=== PATIENT | female | born 1995 | race Caucasian/White ===

== ENCOUNTER 2017-01-24 14:14 | Emergency (ER) | payer MEDICAID ==
[2017-01-24] MEDS ORDERED: Sodium Chloride 0.9% 1000 ML 1,000 ML IV STA (14:30)
--- NOTE | 2017-01-24 14:42 | ERPHSYRPT ---
- History of Present Illness Time Seen by Provider: 01/24/17 14:18 Source: patient, family (darrin) Patient Subjective Stated Complaint: vomiting, unsure if she has the flu or is Triage Nursing Assessment: ambulated to room per self. skin w/d, color normal, resp easy. Physician History: CC: vomiting hx: 21 y/o patient of Dr Garcia with hx of PCO disease. She had LMP one week ago. She has vomiting today. She has no diarrhea or abd pain or fever. She is worried she might be . Timing/Duration: today Severity: moderate Allergies/Adverse Reactions: No Known Drug Allergies Allergy (Verified 01/24/17 14:21) Hx Tetanus, Diphtheria Vaccination/Date Given: No Hx Influenza Vaccination/Date Given: No Hx Pneumococcal Vaccination/Date Given: No - Review of Systems Constitutional: No Fever, No Chills Abdominal/Gastrointestinal: Nausea, Vomiting, No Abdominal Pain, No Diarrhea Genitourinary Symptoms: No Dysuria, No Vaginal Bleeding, No Vaginal Discharge Musculoskeletal: No Back Pain Skin: No Rash Neurological: No Focal Weakness, No Headache, No Parasthesia All Other Systems: Reviewed and Negative - Past Medical History Pertinent Past Medical History: Yes Female Reproductive Disorders: Other Other Medical History: toxic shock syndrome, anemia, pcos, uterus shaped like a heart - Past Surgical History Past Surgical History: No - Social History Smoking Status: Current some day smoker How long have you smoked: 4 Exposure to second hand smoke: Yes Drug Use: marijuana Patient Lives Alone: No (lives with boyfriend) - Female History Hx Last Menstrual Period: 01/13/17 - Nursing Vital Signs Nursing Vital Signs: Initial Vital Signs Temperature 98.2 F 01/24/17 14:17 Pulse Rate 89 01/24/17 14:17 Respiratory Rate 16 01/24/17 14:17 Blood Pressure 135/87 01/24/17 14:17 O2 Sat by Pulse Oximetry 94 L 01/24/17 14:17 - Physical Exam General Appearance: alert, thin Eye Exam: PERRL/EOMI Ears, Nose, Throat Exam: normal ENT inspection, moist mucous membranes Neck Exam: normal inspection, non-tender, supple Respiratory Exam: normal breath sounds Cardiovascular Exam: regular rate/rhythm Gastrointestinal/Abdomen Exam: soft, No tenderness, No distention, No mass, No guarding Pelvic Exam: deferred Back Exam: normal inspection Extremity Exam: normal inspection, normal range of motion Neurologic Exam: alert, oriented x 3, cooperative Skin Exam: warm, dry SpO2 Interpretation: normal SpO2: 94 Oxygen Delivery: Room Air - Course Nursing assessment & vital signs reviewed: Yes Ordered Tests: Active Orders 24 hr Category Date Time Status Clean Catch Urine Specimen STAT Care 01/24/17 14:30 Active IV Insertion STAT Care 01/24/17 14:30 Active CBC W DIFF Stat Lab 01/24/17 14:40 Completed CMP Stat Lab 01/24/17 14:40 Completed CULTURE,URINE Stat Lab 01/24/17 14:30 Received HCG QUALITATIVE,SERUM Stat Lab 01/24/17 14:40 Completed UA W/ MICROSCOPIC Stat Lab 01/24/17 14:30 Completed Medication Summary Discontinued Medications Generic Name Dose Route Start Last Admin Trade Name Freq PRN Reason Stop Dose Admin Sodium Chloride 1,000 mls @ 999 mls/hr 01/24/17 14:30 01/24/17 14:45 Sodium Chloride 0.9% 1000 Ml IV 01/24/17 15:30 999 mls/hr .Q1H1M STA Administration Sodium Chloride Confirm 01/24/17 14:44 Sodium Chloride 0.9% 1000 Ml Administered 01/24/17 14:45 Dose 1,000 mls @ ud .ROUTE .STK-MED ONE Ondansetron HCl 4 mg 01/24/17 15:22 01/24/17 15:23 Zofran 4 Mg/2 Ml Vial IV 01/24/17 15:23 4 mg STAT ONE Administration Ondansetron HCl Confirm 01/24/17 15:22 Zofran 4 Mg/2 Ml Vial Administered 01/24/17 15:23 Dose 4 mg .ROUTE .STK-MED ONE Lab/Rad Data: Laboratory Result Diagrams 01/24/17 14:40 01/24/17 14:40 Laboratory Results 01/24/17 01/24/17 01/24/17 Range/Units 14:40 14:40 14:40 WBC 5.3 (4.0-10.5) K/mm3 RBC 4.40 (4.1-5.4) M/mm3 Hgb 11.1 L (12.0-16.0) gm/dl Hct 33.9 L (35-47) % MCV 77.0 L (78-100) fl MCH 25.2 L (26-32) pg MCHC 32.7 (32-36) g/dl RDW 14.9 H (11.5-14.0) % Plt Count 194 (150-450) K/mm3 MPV 10.1 H (6-9.5) fl Gran % 63.7 (36.0-66.0) % Lymphocytes % 28.2 (24.0-44.0) % Monocytes % 6.2 (0.0-12.0) % Eosinophils % 1.5 (0.00-5.0) % Basophils % 0.4 (0.0-0.4) % Basophils # 0.02 (0-0.4) Sodium 140 (136-145) mEq/L Potassium 3.8 (3.5-5.1) mEq/L Chloride 103 (98-107) mEq/L Carbon Dioxide 28.0 (21-32) mEq/L Anion Gap 12.4 (5-15) MEQ/L BUN 18 (9-20) mg/dL Creatinine 0.91 (0.55-1.30) mg/dl Estimated GFR > 60 ML/MIN Glucose 99 (70-110) MG/DL Calcium 9.1 (8.5-10.1) mg/dL Total Bilirubin 0.40 (0.2-1.0) mg/dL AST 21 (15-37) U/L ALT 19 (12-78) U/L Alkaline Phosphatase 64 (46-116) U/L Serum Total Protein 7.7 (6.4-8.2) gm/dL Albumin 4.6 (3.4-5.0) g/dL Serum , Qual NEGATIVE (Negative) Ur Collection Type Urine Color (YELLOW) Urine Appearance (CLEAR) Urine pH (5-6) Ur Specific [place] (1.005-1.025) Urine Protein (Negative) Urine Ketones (NEGATIVE) Urine Blood (0-5) [place]/ul Urine Nitrite (NEGATIVE) Urine Bilirubin (NEGATIVE) Urine Urobilinogen (0-1) mg/dL Ur Leukocyte Esterase (NEGATIVE) Urine Microscopic RBC (0-2) /HPF Urine Microscopic WBC (0-5) /HPF Ur Epithelial Cells (FEW) /HPF Urine Bacteria (NEGATIVE) /HPF Urine Mucus (NEGATIVE) /HPF Urine Glucose (NEGATIVE) mg/dL Specimen Received 01/24/17 Range/Units 14:30 WBC (4.0-10.5) K/mm3 RBC (4.1-5.4) M/mm3 Hgb (12.0-16.0) gm/dl Hct (35-47) % MCV (78-100) fl MCH (26-32) pg MCHC (32-36) g/dl RDW (11.5-14.0) % Plt Count (150-450) K/mm3 MPV (6-9.5) fl Gran % (36.0-66.0) % Lymphocytes % (24.0-44.0) % Monocytes % (0.0-12.0) % Eosinophils % (0.00-5.0) % Basophils % (0.0-0.4) % Basophils # (0-0.4) Sodium (136-145) mEq/L Potassium (3.5-5.1) mEq/L Chloride (98-107) mEq/L Carbon Dioxide (21-32) mEq/L Anion Gap (5-15) MEQ/L BUN (9-20) mg/dL Creatinine (0.55-1.30) mg/dl Estimated GFR ML/MIN Glucose (70-110) MG/DL Calcium (8.5-10.1) mg/dL Total Bilirubin (0.2-1.0) mg/dL AST (15-37) U/L ALT (12-78) U/L Alkaline Phosphatase (46-116) U/L Serum Total Protein (6.4-8.2) gm/dL Albumin (3.4-5.0) g/dL Serum , Qual (Negative) Ur Collection Type CLEAN CATCH Urine Color YELLOW (YELLOW) Urine Appearance CLEAR (CLEAR) Urine pH 5.0 (5-6) Ur Specific [place] 1.025 (1.005-1.025) Urine Protein TRACE (Negative) Urine Ketones NEGATIVE (NEGATIVE) Urine Blood NEGATIVE (0-5) [place]/ul Urine Nitrite NEGATIVE (NEGATIVE) Urine Bilirubin NEGATIVE (NEGATIVE) Urine Urobilinogen NORMAL (0-1) mg/dL Ur Leukocyte Esterase TRACE (NEGATIVE) Urine Microscopic RBC 0-2 (0-2) /HPF Urine Microscopic WBC 2-5 (0-5) /HPF Ur Epithelial Cells MANY (FEW) /HPF Urine Bacteria MODERATE (NEGATIVE) /HPF Urine Mucus MODERATE (NEGATIVE) /HPF Urine Glucose NEGATIVE (NEGATIVE) mg/dL Specimen Received 01/24 1450 - Progress Progress Note: 01/24/17 15:46 Pt stable. HCG negative. Counseled pt/family regarding: diagnosis, need for follow-up - Departure Time of Disposition: 15:47 Departure Disposition: Home Clinical Impression: Vomiting Qualifiers: Vomiting type: unspecified Vomiting Intractability: non-intractable Nausea presence: with nausea Qualified Code(s): R11.2 - Nausea with vomiting, unspecified Condition: Stable Critical Care Time: No Referrals: CHON GARCIA [Primary Care Provider] - Instructions: Vomiting -- Adult Additional Instructions: VOMITING AND DIARRHEA 1. Take only small amounts of clear, cool liquids at frequent intervals as tolerated for the next 24-48 hours. Avoid milk products and orange juice. Clear liquids are those liquids which you can see through. 2. Pedialyte and popsicles are recommended clear liquids. 3. If the condition worsens you should contact your family physician or return to the emergency department for re-evaluation. Rx zofran. Prescriptions: Ondansetron [Zofran Odt] 4 mg PO Q6HPRN PRN #10 tab.rapdis PRN Reason: Nausea/Vomiting
[2017-01-24] MEDS ORDERED: Sodium Chloride 0.9% 1000 ML 1,000 ML ONE (14:44)
[2017-01-24 14:46] LABS: BASOPHIL % 0.4 % (0.0-0.4); Eosinophil % 1.5 % (0.00-5.0); Granulocytes % 63.7 % (36.0-66.0); Lymphocytes % 28.2 % (24.0-44.0); Mean Corpuscular Hemoglobin 25.2 pg (26-32); Mean Platelet Volume 10.1 fl (6-9.5); Monocytes % 6.2 % (0.0-12.0); Platelet Count 194 K/mm3 (150-450); Red Cell Distribution Width 14.9 % (11.5-14.0); White Blood Count 5.3 K/mm3 (4.0-10.5)
[2017-01-24 15:01] LABS: Bilirubin NEGATIVE (NEGATIVE); Blood NEGATIVE Ery/ul (0-5); COMPLETE URINE MICROSCOPIC? YES; Collection Type CLEAN CATCH; Glucose NEGATIVE (NEGATIVE); Leukocyte Esterase TRACE (NEGATIVE); Mucus MODERATE /HPF (NEGATIVE)
[2017-01-24 15:02] LABS: ADD URINE CULTURE? YES (NO); Bacteria MODERATE /HPF (NEGATIVE); Epithelial Cells MANY /HPF (FEW)
[2017-01-24] MEDS ORDERED: Zofran 4 MG/2 ML VIAL ONE (15:22)
[2017-01-24] MEDS ORDERED: Zofran 4 MG/2 ML VIAL IV ONE (15:22)
[2017-01-24 15:24] LABS: ALBUMIN 4.6 g/dL (3.4-5.0); ALKALINE PHOSPHATASE 64 U/L (46-116); ANION GAP 12.4 MEQ/L (5-15); BLOOD UREA NITROGEN 18 mg/dL (9-20); CHLORIDE 103 mEq/L (98-107); Glucose 99 MG/DL (70-110); Potassium 3.8 mEq/L (3.5-5.1); SGOT/AST 21 U/L (15-37); SGPT/ALT 19 U/L (12-78); SODIUM 140 mEq/L (136-145); Total Protein 7.7 gm/dL (6.4-8.2)
[2017-01-24 15:47] VITALS: BP 107/63; PULSE 80
[2017-01-24 15:48] VITALS: O2SAT 94
== END 2017-01-24 16:02 | disposition home or self-care (01) ==
LOC: ED 14:14
DX: R11.2 Nausea with vomiting, unspecified (principal)
CPT/HCPCS: 36000; 36415; 80053; 81000; 84703; 85025; 87077; 87086; 87186; 96360; 96374; 99285; J2405

== ENCOUNTER 2017-03-22 21:05 | Emergency (ER) | payer MEDICAID, OTHER ==
--- NOTE | 2017-03-22 21:58 | ERPHSYRPT ---
- History of Present Illness Time Seen by Provider: 03/22/17 21:47 Source: patient, family (darrin) Physician History: CC: vaginal bleeding hx: 21 y/o approx 9 weeks with initial OB visit scheduled tomorrow with Dr baugh. She noted some lower abd cramping this AM. Nausea this afternoon. Wiped some vaginal bleeding this evening so came to ER. She has hx of known bicornuate uterus. No dysuria, fever, back pain. Timing/Duration: today Allergies/Adverse Reactions: No Known Drug Allergies Allergy (Verified 01/24/17 14:21) Hx Tetanus, Diphtheria Vaccination/Date Given: No Hx Influenza Vaccination/Date Given: No Hx Pneumococcal Vaccination/Date Given: No - Review of Systems Constitutional: No Fever, No Chills Eyes: No Symptoms Ears, Nose, & Throat: No Symptoms Respiratory: No Cough, No Dyspnea Cardiac: No Chest Pain Abdominal/Gastrointestinal: Nausea, No Abdominal Pain, No Vomiting Genitourinary Symptoms: , Vaginal Bleeding, Other (last intercourse yesterday), No Dysuria, No Vaginal Discharge Musculoskeletal: No Back Pain Skin: No Rash Neurological: No Headache All Other Systems: Reviewed and Negative - Past Medical History Pertinent Past Medical History: Yes Female Reproductive Disorders: Other Other Medical History: toxic shock syndrome, anemia, pcos, uterus shaped like a heart - Past Surgical History Past Surgical History: No - Social History Smoking Status: Current some day smoker How long have you smoked: 4 Exposure to second hand smoke: Yes Drug Use: marijuana Patient Lives Alone: No (lives with boyfriend) - Nursing Vital Signs Nursing Vital Signs: Initial Vital Signs Temperature 100.0 F 03/22/17 21:58 Pulse Rate 80 03/22/17 21:58 Respiratory Rate 12 03/22/17 21:58 Blood Pressure 130/50 03/22/17 21:58 O2 Sat by Pulse Oximetry 100 03/22/17 21:58 Pain Scale Pain Intensity 4 - Physical Exam General Appearance: alert Eye Exam: PERRL/EOMI Ears, Nose, Throat Exam: normal ENT inspection, moist mucous membranes Neck Exam: normal inspection, non-tender, supple Respiratory Exam: normal breath sounds, lungs clear Cardiovascular Exam: regular rate/rhythm Neurologic Exam: alert, oriented x 3, cooperative Skin Exam: warm, dry, No rash - Course Nursing assessment & vital signs reviewed: Yes - Radiology Ultrasound Exam OB Ultrasound: Other (8+4 week IUP with FHR 173, bicornuate uterus) Ordered Tests: Active Orders 24 hr Category Date Time Status Cath for Specimen-Straight STAT Care 03/22/17 21:53 Active Pelvic Exam Assist STAT Care 03/22/17 21:53 Active OB <14 WKS 1ST GESTATION [US] Stat Exams 03/22/17 22:27 Ordered CBC W DIFF Stat Lab 03/22/17 21:10 Completed HCG, Quantitative (Inhouse) Stat Lab 03/22/17 21:10 Completed HCG,QUALITATIVE URINE Stat Lab 03/22/17 21:00 Completed UA W/ MICROSCOPIC Stat Lab 03/22/17 23:00 Completed Wet Prep Stat Lab 03/22/17 23:00 Completed Lab/Rad Data: Laboratory Result Diagrams 03/22/17 21:10 Laboratory Results 03/22/17 03/22/17 03/22/17 Range/Units 23:00 21:10 21:10 WBC (4.0-10.5) K/mm3 RBC (4.1-5.4) M/mm3 Hgb (12.0-16.0) gm/dl Hct (35-47) % MCV (78-100) fl MCH (26-32) pg MCHC (32-36) g/dl RDW (11.5-14.0) % Plt Count (150-450) K/mm3 MPV (6-9.5) fl Gran % (36.0-66.0) % Lymphocytes % (24.0-44.0) % Monocytes % (0.0-12.0) % Eosinophils % (0.00-5.0) % Basophils % (0.0-0.4) % Basophils # (0-0.4) Beta HCG, Quant [id number] H (0-6) IU/L Ur Collection Type CATH Urine Color YELLOW (YELLOW) Urine Appearance CLEAR (CLEAR) Urine pH 5.5 (5-6) Ur Specific [place] 1.025 (1.005-1.025) Urine Protein NEGATIVE (Negative) Urine Ketones NEGATIVE (NEGATIVE) Urine Blood 50 (0-5) [place]/ul Urine Nitrite NEGATIVE (NEGATIVE) Urine Bilirubin NEGATIVE (NEGATIVE) Urine Urobilinogen 1 (0-1) mg/dL Ur Leukocyte Esterase NEGATIVE (NEGATIVE) Urine Microscopic RBC 0-2 (0-2) /HPF Urine Bacteria RARE (NEGATIVE) /HPF Urine Glucose NEGATIVE (NEGATIVE) mg/dL Urine HCG, Qual (Negative) WBC (Wet Prep) Moderate RBC (Wet Prep) Few Epi Cells (Wet Prep) Moderate Bacteria (Wet Prep) Few Clue Cells (Wet Prep) Rare Trichomonas (Wet Prep) None Seen Budding Yeast (Wet Prp) None Seen Specimen Received 03/22/17:2300 ABO Group B Rh Factor POSITIVE Antibody Screen NEGATIVE (NEGATIVE) 03/22/17 03/22/17 Range/Units 21:10 21:00 WBC 9.8 (4.0-10.5) K/mm3 RBC 4.01 L (4.1-5.4) M/mm3 Hgb 10.7 L (12.0-16.0) gm/dl Hct 31.4 L (35-47) % MCV 78.3 (78-100) fl MCH 26.6 (26-32) pg MCHC 34.1 (32-36) g/dl RDW 15.5 H (11.5-14.0) % Plt Count 196 (150-450) K/mm3 MPV 9.9 H (6-9.5) fl Gran % 71.4 H (36.0-66.0) % Lymphocytes % 21.1 L (24.0-44.0) % Monocytes % 6.3 (0.0-12.0) % Eosinophils % 1.1 (0.00-5.0) % Basophils % 0.1 (0.0-0.4) % Basophils # 0.01 (0-0.4) Beta HCG, Quant (0-6) IU/L Ur Collection Type Urine Color (YELLOW) Urine Appearance (CLEAR) Urine pH (5-6) Ur Specific [place] (1.005-1.025) Urine Protein (Negative) Urine Ketones (NEGATIVE) Urine Blood (0-5) [place]/ul Urine Nitrite (NEGATIVE) Urine Bilirubin (NEGATIVE) Urine Urobilinogen (0-1) mg/dL Ur Leukocyte Esterase (NEGATIVE) Urine Microscopic RBC (0-2) /HPF Urine Bacteria (NEGATIVE) /HPF Urine Glucose (NEGATIVE) mg/dL Urine HCG, Qual POSITIVE (Negative) WBC (Wet Prep) RBC (Wet Prep) Epi Cells (Wet Prep) Bacteria (Wet Prep) Clue Cells (Wet Prep) Trichomonas (Wet Prep) Budding Yeast (Wet Prp) Specimen Received ABO Group Rh Factor Antibody Screen (NEGATIVE) - Progress Progress Note: 03/22/17 23:46 Labs and sono reassuring. Advised miscarriage precautions and follow up with Dr Baugh. Counseled pt/family regarding: diagnosis, need for follow-up - Departure Time of Disposition: 23:46 Departure Disposition: Home Clinical Impression: 8+4 week intrauterine , Threatened miscarriage Condition: Stable Critical Care Time: No Referrals: OVI BAUGH MD [Primary Care Provider] - Instructions: Threatened Additional Instructions: Stay on vitamins. No intercourse. Drink plenty of fluids. Follow up with Dr Baugh this week. Return for problems or concerns.
[2017-03-22 22:17] LABS: BASOPHIL % 0.1 % (0.0-0.4); Eosinophil % 1.1 % (0.00-5.0); Granulocytes % 71.4 % (36.0-66.0); Lymphocytes % 21.1 % (24.0-44.0); Mean Cell Volume 78.3 fl (78-100); Mean Platelet Volume 9.9 fl (6-9.5); Monocytes % 6.3 % (0.0-12.0); Platelet Count 196 K/mm3 (150-450); Red Blood Count 4.01 M/mm3 (4.1-5.4); Red Cell Distribution Width 15.5 % (11.5-14.0); White Blood Count 9.8 K/mm3 (4.0-10.5)
[2017-03-22 22:25] LABS: Mean Corpuscular Hemoglobin 26.6 pg (26-32)
[2017-03-22 23:20] LABS: Collection Type CATH
[2017-03-22 23:21] LABS: Bacteria RARE /HPF (NEGATIVE); Bilirubin NEGATIVE (NEGATIVE); Blood 50 Ery/ul (0-5); COMPLETE URINE MICROSCOPIC? YES; Glucose NEGATIVE (NEGATIVE); Leukocyte Esterase NEGATIVE (NEGATIVE)
[2017-03-22 23:22] LABS: ADD URINE CULTURE? NO (NO); Bacteria Few; Clue Cells Rare; Trichomonas None Seen; Yeast None Seen
[2017-03-22 23:57] VITALS: BP 116/64; PULSE 65; O2SAT 99
[2017-03-23 01:11] LABS: CHLAMYDIA DNA NEGATIVE
--- NOTE | 2017-03-23 08:47 | XRAY ---
Indication: Pelvic pain. Vaginal bleeding. History of bicornuate uterus. Two-dimensional transabdominal early OB ultrasound performed. Comparison: Pelvic sonogram January 30, 2017. Again sonographic appearance favoring bicornuate uterus. There is now a single intrauterine gestational sac with presence of a single pole in the right cornu. Mean crown-rump length measures 2.00 cm corresponding to 8 weeks 4 days. heart rate 173 bpm. No abnormal subchorionic fluid collection. Left and right ovaries are unremarkable. No suspicious adnexal mass or free fluid. Impression: Again bicornuate uterus with now a single viable intrauterine measuring 8 weeks 4 days. Expected date confinement is October 28, 2017. Nothing acute. Comment: Preliminary report was given.
== END 2017-03-22 23:57 | disposition home or self-care (01) ==
LOC: ED 21:05
DX: O20.0 Threatened abortion (principal); Z3A.08 8 weeks gestation of pregnancy
CPT/HCPCS: 36415; 76801; 76815; 81000; 84702; 84703; 85025; 86850; 86900; 86901; 87210; 87490; 87590; 99284

== ENCOUNTER 2017-06-12 09:20 | Emergency (ER) | payer OTHER ==
[2017-06-12] MEDS ORDERED: Sodium Chloride 0.9% 1000 ML 1,000 ML IV STA ×2 (09:46→11:14)
--- NOTE | 2017-06-12 09:46 | ERPHSYRPT ---
- History of Present Illness Time Seen by Provider: 06/12/17 09:37 Source: patient Exam Limitations: no limitations Patient Subjective Stated Complaint: Pt states "I have been vomiting since [address] 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 I cannot keep anything down." Triage Nursing Assessment: Pt alert and oriented X 3, skin pwd. Pt ambulates with an upright steady gait, able to speak in clear full sentences. Pt appears in no respiratory distress. Physician History: 22-year-old white female 1 para 0 who is 20 weeks 5 days estimated gestational age who had a ultrasound last week. She arrives with complaint of persistent nausea and vomiting since last night. She states that she had occasional abdominal cramp. No vaginal bleeding no discharge No fevers. States she ate at [employer] last night. Does state that vomiting has slowed a little bit and has not had vomiting this morning after taking sips of water. Past medical history includes toxic shock, anemia, polycystic ovaries, bicornuate uterus Past surgical history is negative Timing/Duration: yesterday Severity: moderate Modifying Factors: Improves With: nothing Associated Symptoms: nausea, vomiting, abdominal pain (occasional abdominal cramp with vomiting), No shortness of breath, No heartburn, No diaphoresis, No cough, No chills, No chest pain, No fever, No headaches, No loss of appetite, No malaise, No rash, No syncope, No seizure, No weakness Allergies/Adverse Reactions: No Known Drug Allergies Allergy (Verified 01/24/17 14:21) Home Medications: Comb No.42/Folic Acid [Prena1 Chew Tablet] 1.4 mg PO DAILY 06/12/17 [ History] Hx Tetanus, Diphtheria Vaccination/Date Given: No Hx Influenza Vaccination/Date Given: No Hx Pneumococcal Vaccination/Date Given: No Immunizations Up to Date: Yes - Review of Systems Constitutional: No Fever, No Chills Eyes: No Symptoms Ears, Nose, & Throat: No Symptoms, No Ear Pain, No Ear Discharge, No Hearing Changes, No Tinnitus, No Nose Pain, No Nose Congestion, No Nose Discharge, No Sinus Drainage, No Epistaxis, No Mouth Pain, No Mouth Swelling, No Loose Teeth, No Throat Pain, No Throat Swelling, No Hoarse, No Painful Swallowing, No Snoring , No Stridor Respiratory: No Cough, No Dyspnea Cardiac: No Chest Pain, No Edema, No Syncope Abdominal/Gastrointestinal: Abdominal Pain (occasional cramps with vomiting), Nausea, Vomiting Genitourinary Symptoms: No Dysuria Musculoskeletal: No Back Pain, No Neck Pain Skin: No Rash Neurological: No Dizziness, No Focal Weakness, No Sensory Changes Psychological: No Symptoms Endocrine: No Symptoms All Other Systems: Reviewed and Negative - Past Medical History Pertinent Past Medical History: Yes Female Reproductive Disorders: Other Other Medical History: toxic shock syndrome, anemia, pcos, uterus shaped like a heart - Past Surgical History Past Surgical History: No - Social History Smoking Status: Never smoker How long have you smoked: 4 Exposure to second hand smoke: Yes Drug Use: marijuana Patient Lives Alone: No - Female History Hx Last Menstrual Period: 12/31/2016 Hx Now: Yes Expected Date of Delivery: 10/23/16 Gestational Age: 17 - Nursing Vital Signs Nursing Vital Signs: Initial Vital Signs Temperature 98.2 F 06/12/17 09:24 Pulse Rate 116 H 06/12/17 09:24 Respiratory Rate 16 06/12/17 09:24 Blood Pressure 121/77 06/12/17 09:24 O2 Sat by Pulse Oximetry 95 06/12/17 09:24 Pain Scale Pain Intensity 2 - Physical Exam General Appearance: no apparent distress, alert Eye Exam: PERRL/EOMI, eyes nml inspection Ears, Nose, Throat Exam: normal ENT inspection, TMs normal, pharynx normal, moist mucous membranes Neck Exam: normal inspection, non-tender, supple, full range of motion Respiratory Exam: normal breath sounds Cardiovascular Exam: regular rate/rhythm, normal heart sounds, normal peripheral pulses Gastrointestinal/Abdomen Exam: soft, normal bowel sounds, No tenderness, No mass Back Exam: normal inspection, normal range of motion, No CVA tenderness, No vertebral tenderness Extremity Exam: normal inspection, normal range of motion, pelvis stable Neurologic Exam: alert, oriented x 3, cooperative, normal mood/affect, nml cerebellar function, nml station & gait, sensation nml, No motor deficits Skin Exam: normal color, warm, dry, No rash Lymphatic Exam: No adenopathy SpO2 Interpretation: normal (95%) SpO2: 95 Oxygen Delivery: Room Air Ordered Tests: Active Orders 24 hr Category Date Time Status Heart Tones-ED STAT Care 06/12/17 09:47 Active IV Insertion STAT Care 06/12/17 09:46 Active Orthostatic Vital Signs STAT Care 06/12/17 10:34 Active AMYLASE Stat Lab 06/12/17 09:57 Completed CBC W DIFF Stat Lab 06/12/17 09:57 Completed CMP Stat Lab 06/12/17 09:57 Completed LIPASE Stat Lab 06/12/17 09:57 Completed Manual Differential NC Stat Lab 06/12/17 09:57 Completed UA W/ MICROSCOPIC Stat Lab 06/12/17 09:57 Completed Medication Summary Discontinued Medications Generic Name Dose Route Start Last Admin Trade Name Freq PRN Reason Stop Dose Admin Sodium Chloride 1,000 mls @ 999 mls/hr 06/12/17 09:46 06/12/17 09:53 Sodium Chloride 0.9% 1000 Ml IV 06/12/17 10:46 999 mls/hr .Q1H1M STA Administration Sodium Chloride Confirm 06/12/17 09:52 Sodium Chloride 0.9% 1000 Ml Administered 06/12/17 09:53 Dose 1,000 mls @ ud .ROUTE .STK-MED ONE Sodium Chloride 1,000 mls @ 999 mls/hr 06/12/17 11:14 06/12/17 11:22 Sodium Chloride 0.9% 1000 Ml IV 06/12/17 12:14 999 mls/hr .Q1H1M STA Administration Sodium Chloride Confirm 06/12/17 11:20 Sodium Chloride 0.9% 1000 Ml Administered 06/12/17 11:21 Dose 1,000 mls @ ud .ROUTE .STK-MED ONE Potassium Chloride 20 meq 06/12/17 11:17 06/12/17 11:22 Klor Con 10 Meq PO 06/12/17 11:18 20 meq STAT ONE Administration Potassium Chloride Confirm 06/12/17 11:20 Klor Con 10 Meq Administered 06/12/17 11:21 Dose 20 meq PO .STK-MED ONE Lab/Rad Data: Laboratory Result Diagrams 06/12/17 09:57 06/12/17 09:57 Laboratory Results 06/12/17 06/12/17 06/12/17 Range/Units 09:57 09:57 09:57 WBC 8.4 (4.0-10.5) K/mm3 RBC 3.66 L (4.1-5.4) M/mm3 Hgb 10.6 L (12.0-16.0) gm/dl Hct 30.8 L (35-47) % MCV 84.2 (78-100) fl MCH 28.9 (26-32) pg MCHC 34.4 (32-36) g/dl RDW 13.9 (11.5-14.0) % Plt Count 191 (150-450) K/mm3 MPV 8.8 (6-9.5) fl Segmented Neutrophils 74 H (36.0-66.0) % Band Neutrophils 21 H (0.0-2.0) % Lymphocytes (Manual) 2 L (24-44) % Monocytes (Manual) 3 (0.0-12.0) % Differential Comment ABNORMAL Platelet Estimate NORMAL (NORMAL) Poikilocytosis 1+ Anisocytosis 1+ Sodium 137 (136-145) mEq/L Potassium 3.3 L (3.5-5.1) mEq/L Chloride 102 (98-107) mEq/L Carbon Dioxide 24.1 (21-32) mEq/L Anion Gap 14.4 (5-15) MEQ/L BUN 11 (9-20) mg/dL Creatinine 0.52 L (0.55-1.30) mg/dl Estimated GFR > 60 ML/MIN Glucose 93 (70-110) MG/DL Calcium 8.7 (8.5-10.1) mg/dL Total Bilirubin 0.80 (0.2-1.0) mg/dL AST 26 (15-37) U/L ALT 28 (12-78) U/L Alkaline Phosphatase 68 (46-116) U/L Serum Total Protein 7.2 (6.4-8.2) gm/dL Albumin 3.6 (3.4-5.0) g/dL Amylase 98 (25-115) U/L Lipase 188 (73-393) U/L Ur Collection Type CLEAN CATCH Urine Color YELLOW (YELLOW) Urine Appearance HAZY (CLEAR) Urine pH 8.0 (5-6) Ur Specific Printer 1.010 (1.005-1.025) Urine Protein NEGATIVE (Negative) Urine Ketones MODERATE (NEGATIVE) Urine Blood NEGATIVE (0-5) Pacheco/ul Urine Nitrite NEGATIVE (NEGATIVE) Urine Bilirubin NEGATIVE (NEGATIVE) Urine Urobilinogen NORMAL (0-1) mg/dL Ur Leukocyte Esterase TRACE (NEGATIVE) Urine Microscopic RBC 0-2 (0-2) /HPF Urine Microscopic WBC 2-5 (0-5) /HPF Ur Epithelial Cells FEW (FEW) /HPF Urine Bacteria FEW (NEGATIVE) /HPF Urine Mucus SLIGHT (NEGATIVE) /HPF Urine Culture Reflexed NO (NO) Urine Glucose NEGATIVE (NEGATIVE) mg/dL Specimen Received 06-12 - Progress Progress: improved Progress Note: 06/12/17 10:17 21-year-old white female with history of polycystic ovary disease bicornate uterus 1 para 0 20 weeks 5 days estimated gestational age. Arrives with complaint of persistent nausea and vomiting since last night. She states that she was sent into the to make sure she wasn't dehydrated by her family doctor. Patient states she has had a few abdominal cramps with vomiting otherwise no distress she's had no vaginal discharge or bleeding. Abdominal exam gravid 20 weeks size positive bowel sounds nontender. Patient receiving IV normal saline. Patient did not want Zofran or other anti-emetics she states that she was actually starting to sip and Sprite and seen by her vomiting was decreasing. heart tones are 150 per OB nurse with adequate movement. Awaiting labs. 06/12/17 11:32 Patient feeling better after 1 L of normal saline still a mild tachycardia she did have moderate ketones in her urine. And a potassium of 3.3. Patient will be given a second liter of normal saline and a K Dur tablet 20 mEq. 06/12/17 11:33 06/12/17 12:17 Patient him feeling better after 2 L of normal saline. Patient was given K dur 20 milliequivalents orally Still mild tachycardia around 110. Case is discussed with Dr. Baugh, will consider discharge with plenty of fluids clear fluids only 24 hours if vomiting follow-up with Dr. Baugh . Patient has not Vomited since being in the emergency room. 06/12/17 12:23 - Departure Time of Disposition: 12:22 Departure Disposition: Home Clinical Impression: Intrauterine , incidental Vomiting Qualifiers: Vomiting type: unspecified Vomiting Intractability: non-intractable Nausea presence: with nausea Qualified Code(s): R11.2 - Nausea with vomiting, unspecified Condition: Fair Critical Care Time: No Referrals: OVI BAUGH MD [Primary Care Provider] - Additional Instructions: Return home. Plenty of fluids, clear fluids only 24-48 hours If vomiting. Follow-up with Dr. Baugh. Return for acute distress or for severe symptoms
[2017-06-12] MEDS ORDERED: Sodium Chloride 0.9% 1000 ML 1,000 ML ONE ×2 (09:52→11:20)
[2017-06-12 09:54] LABS: Mean Cell Volume 84.2 fl (78-100); Mean Platelet Volume 8.8 fl (6-9.5); Platelet Count 191 K/mm3 (150-450); Red Blood Count 3.66 M/mm3 (4.1-5.4); Red Cell Distribution Width 13.9 % (11.5-14.0); White Blood Count 8.4 K/mm3 (4.0-10.5)
[2017-06-12 10:00] LABS: Bilirubin NEGATIVE (NEGATIVE); Blood NEGATIVE Ery/ul (0-5); COMPLETE URINE MICROSCOPIC? YES; Collection Type CLEAN CATCH; Glucose NEGATIVE (NEGATIVE); Leukocyte Esterase TRACE (NEGATIVE)
[2017-06-12 10:06] LABS: ADD URINE CULTURE? NO (NO); Bacteria FEW /HPF (NEGATIVE); Epithelial Cells FEW /HPF (FEW); Mucus SLIGHT /HPF (NEGATIVE)
[2017-06-12 10:19] LABS: Mean Corpuscular Hemoglobin 28.9 pg (26-32)
[2017-06-12 10:23] LABS: ANISOCYTOSIS 1+; BAND 21 % (0.0-2.0); Platelet Estimate NORMAL (NORMAL); Poikilocytosis 1+; Total Cells Counted 100
[2017-06-12 10:32] LABS: ALBUMIN 3.6 g/dL (3.4-5.0); ALKALINE PHOSPHATASE 68 U/L (46-116); ANION GAP 14.4 MEQ/L (5-15); BLOOD UREA NITROGEN 11 mg/dL (9-20); CHLORIDE 102 mEq/L (98-107); Carbon Dioxide 24.1 mEq/L (21-32); Glucose 93 MG/DL (70-110); LIPASE 188 U/L (73-393); Potassium 3.3 mEq/L (3.5-5.1); SGOT/AST 26 U/L (15-37); SGPT/ALT 28 U/L (12-78); SODIUM 137 mEq/L (136-145); Total Protein 7.2 gm/dL (6.4-8.2)
[2017-06-12] MEDS ORDERED: Klor Con 10 MEQ PO ONE ×2 (11:17→11:20)
[2017-06-12 12:43] VITALS: BP 116/66; PULSE 116; O2SAT 98
== END 2017-06-12 12:43 | disposition home or self-care (01) ==
LOC: ED 09:20
DX: O21.2 Late vomiting of pregnancy (principal); O34.02 Maternal care for unspecified congenital malformation of uterus, second trimester; Q51.3 Bicornate uterus; Z3A.20 20 weeks gestation of pregnancy
CPT/HCPCS: 36000; 36415; 80053; 81000; 82150; 83690; 85025; 96360; 99283; A9270-GY

== ENCOUNTER 2017-09-11 14:52 | Observation (INO) | payer OTHER ==
[2017-09-11] MEDS ORDERED: PROCARDIA 10 MG PO ONE (16:00)
[2017-09-11] MEDS ORDERED: Lactated Ringers 1,000 ML IV ONE (16:01)
[2017-09-11 17:00] VITALS: O2SAT 100
[2017-09-11 18:24] LABS: Amphetamine,Urine NEGATIVE (NEGATIVE); Barbiturate,Urine NEGATIVE (NEGATIVE); Benzodiazepine,Urine NEGATIVE (NEGATIVE); Cocaine,Urine NEGATIVE (NEGATIVE); Methadone,Urine NEGATIVE (NEGATIVE); Opiate,Urine NEGATIVE (NEGATIVE); PCP,Urine NEGATIVE (NEGATIVE); THC,Urine NEGATIVE (NEGATIVE)
[2017-09-11 19:02] VITALS: BP 110/70; PULSE 89
== END 2017-09-11 18:33 | disposition home or self-care (01) ==
LOC: OB 14:52
PROVIDERS: ADMIT Family Medicine; ATTEND Family Medicine
DX: Z34.03 Encounter for supervision of normal first pregnancy, third trimester (principal)
CPT/HCPCS: 80307; G0378; A9270-GY

== ENCOUNTER 2017-10-06 18:05 | Inpatient (IN) | payer OTHER ==
[~2017-10-06 18:05] MED LIST: Astramorph-Pf 5 MG/10 ML IV ONE; Decadron 4 MG INJ IV ONE; Naropin 0.5% 30 ML VIAL IJ ONE; PHENYLEPHRINE HCL IV ONE; Pitocin 10 UNITS/ML IV ONE; Zofran 4 MG/2 ML VIAL IV ONE
[2017-10-06] MEDS ORDERED: Lactated Ringers 1,000 ML IV ONE (18:23)
[2017-10-06] MEDS ORDERED: Lactated Ringers 1,000 ML IV SCH (18:30)
[2017-10-06] MEDS ORDERED: Pepcid 20 MG VIAL IV SCH (18:30)
[2017-10-06] MEDS ORDERED: Reglan 10 MG/2 ML IV SCH (18:30)
[2017-10-06] MEDS ORDERED: BICITRA 30 ML CUP PO SCH (18:30)
[2017-10-06 19:01] LABS: Hematocrit 32.7 % (35-47); Hemoglobin 11.2 gm/dl (12.0-16.0); Mean Cell Volume 83.6 fl (78-100); Mean Corpuscular Hemoglobin 28.6 pg (26-32); Mean Corpuscular Hgb Concent. 34.3 g/dl (32-36); Mean Platelet Volume 10.9 fl (6-9.5); Platelet Count 183 K/mm3 (150-450); Red Blood Count 3.91 M/mm3 (4.1-5.4); Red Cell Distribution Width 12.3 % (11.5-14.0); White Blood Count 14.4 K/mm3 (4.0-10.5)
[2017-10-06 19:22] LABS: INR 0.91 (0.8-3.0)
[2017-10-06] MEDS ORDERED: CEFAZOLIN 2 GM-D5W BAG** 2 GM/50 ML ML IV SCH (19:30)
[2017-10-06] MEDS ORDERED: Dulcolax 10 MG SUPP PR PRN (19:56)
[2017-10-06] MEDS ORDERED: CORTISONE 1% CREAM TP PRN (19:56)
[2017-10-06] MEDS ORDERED: LANSINOH 40 GM TOP PRN (19:56)
[2017-10-06] MEDS ORDERED: PERCOCET TABLET 5/325MG PO PRN (19:56)
[2017-10-06] MEDS ORDERED: Nubain 10 MG/ML IV PRN (19:56)
[2017-10-06] MEDS ORDERED: Ambien 10 MG PO PRN (19:56)
[2017-10-06] MEDS ORDERED: Dermoplast Spray TP PRN (19:56)
[2017-10-06] MEDS ORDERED: Anucort-HC SUPPOSITORY PR PRN (19:56)
[2017-10-06] MEDS ORDERED: MORPHINE SULFATE 2 MG INJ IV PRN (19:56)
[2017-10-06] MEDS ORDERED: DEMEROL 50 MG IV PRN (19:56)
[2017-10-06] MEDS ORDERED: BENADRYL 50 MG/ML IV PRN (19:56)
[2017-10-06] MEDS ORDERED: Zofran 4 MG/2 ML VIAL IV PRN (19:56)
[2017-10-06] MEDS ORDERED: Sodium Chloride 0.9% 10 ML FLUSH Syringe IJ PRN (19:56)
[2017-10-06] MEDS ORDERED: Mylicon 80MG PO PRN (19:56)
[2017-10-06] MEDS ORDERED: TUCKS TP PRN (19:56)
[2017-10-06] MEDS ORDERED: Phenergan 25 MG INJ IM PRN (19:56)
[2017-10-06] MEDS ORDERED: CLARITIN 10 MG PO PRN (19:56)
[2017-10-06] MEDS ORDERED: Narcan 0.4 MG/ML IV PRN (19:56)
[2017-10-06] MEDS ORDERED: HOLD NARCOTIC ANALGESICS AND SEDATIVES X24 HR MC PRN (19:56)
[2017-10-06 20:30] LABS: ABO TYPING B; Antibody Screen NEGATIVE (NEGATIVE); RH TYPING POSITIVE
[2017-10-06 20:34] LABS: Amphetamine,Urine NEGATIVE (NEGATIVE); Barbiturate,Urine NEGATIVE (NEGATIVE); Benzodiazepine,Urine NEGATIVE (NEGATIVE); Cocaine,Urine NEGATIVE (NEGATIVE); Methadone,Urine NEGATIVE (NEGATIVE); Opiate,Urine NEGATIVE (NEGATIVE); PCP,Urine NEGATIVE (NEGATIVE); THC,Urine NEGATIVE (NEGATIVE)
[2017-10-06 22:07] LABS: Appearance CLOUDY (CLEAR); Bacteria FEW /HPF (NEGATIVE); Bilirubin NEGATIVE (NEGATIVE); Blood 250 Ery/ul (0-5); Epithelial Cells FEW /HPF (FEW); Glucose NEGATIVE (NEGATIVE); Ketones LARGE (NEGATIVE); Leukocyte Esterase TRACE (NEGATIVE); Nitrite NEGATIVE (NEGATIVE); Protein,Urine Dip TRACE (Negative); Specific Gravity 1.015 (1.005-1.025); Urobilinogen NORMAL mg/dL (0-1)
[2017-10-06] MEDS: Colace 100 MG PO SCH (22:59)
[2017-10-06] MEDS: Dextrose 5%-Lr IV Solution 1000 ML 1,000 ML IV SCH (23:05)
[2017-10-07] MEDS: TYLENOL EXTRA STRENGTH 500 MG PO PRN ×2 (05:43→11:02)
[2017-10-07] MEDS: MOTRIN 400 MG PO PRN ×3 (05:43→20:15)
[2017-10-07 05:50] LABS: BASOPHIL % 0.1 % (0.0-0.4); Basophil (Absolute #) 0.01 (0-0.4); Eosinophil (Absolute #) 0 (0-0.5); Granulocyte Absolute (ANC) 14.51 (1.4-6.9); Granulocytes % 90.8 % (36.0-66.0); Hematocrit 21.9 % (35-47); Hemoglobin 7.5 gm/dl (12.0-16.0); Lymphocytes % 5.6 % (24.0-44.0); Mean Cell Volume 84.6 fl (78-100); Mean Corpuscular Hgb Concent. 34.2 g/dl (32-36); Mean Platelet Volume 9.5 fl (6-9.5); Monocyte (Absolute #) 0.56 (0.0-1.3); Monocytes % 3.5 % (0.0-12.0); Platelet Count 153 K/mm3 (150-450); Red Blood Count 2.59 M/mm3 (4.1-5.4); Red Cell Distribution Width 11.8 % (11.5-14.0)
[2017-10-07 05:52] LABS: Mean Corpuscular Hemoglobin 28.9 pg (26-32)
[2017-10-07] MEDS: Dextrose 5%-Lr IV Solution 1000 ML 1,000 ML IV SCH (06:01)
[2017-10-07] MEDS ORDERED: Adacel Vial IM ONE (10:00)
--- NOTE | 2017-10-07 10:07 | OP ---
SURGERY DATE/TIME: 10/06/20171931 PREOPERATIVE DIAGNOSES: 1) Breech presentation. 2) Bicornuate uterus. 3) In early labor. POSTOPERATIVE DIAGNOSES: 1) Breech presentation. 2) Bicornuate uterus. 3) In early labor. PROCEDURE: Primary low transverse section. SURGEON: Moris Bejarano M.D. ANESTHESIA: Spinal by Wojciech Paul CRNA. ESTIMATED BLOOD LOSS: 400 cc. IV FLUIDS: 2 liters of crystalloid. URINE OUTPUT: 50 cc clear straw-colored urine. SPECIMEN: Placenta was sent for pathology. DESCRIPTION OF PROCEDURE: The patient is a 21 year-old 1, para 0 at 36 weeks and 6 days who was breech presentation with history of bicornuate uterus who presented to labor and delivery in early active labor with regular contractions, bloody show and spontaneous rupture of membranes. She was taken to the operating room and underwent spinal anesthesia. She was prepped and draped in the usual sterile fashion. After adequate level of anesthesia was assessed, a low transverse skin incision was made by knife and carried down to the subcutaneous fat to the level of the fascia and the fascia was nicked on both sides of the midline and extended in horizontal fashion using curved Lorenzana scissors. The superior free edge of the fascia was grasped with Chad clamps and the underlying rectus muscles were dissected free. The same was repeated inferiorly. The peritoneal cavity was then opened and extended in horizontal fashion. Bladder blade was inserted. Bladder flap was created and reflected over the lower uterine segment. Horizontal uterine incision was made by knife and carried down to the level of the amniotic membranes which were carefully artificially ruptured. A viable female was delivered from breech presentation. Oropharynx and nares were bulb suctioned on the field. Cord was clamped and cut. She was handed off to the awaiting nursery team. Placenta was removed manually from the uterus and the uterus was exteriorized. The uterine cavity was wiped free of any remaining membranes, blood or clot with lap sponge. There was a septum noted at this noted. Next, the uterine incision was closed with #1 chromic in a running locked fashion with good hemostasis and good closure. There was a small extension in the left aspect of the uterine incision vertically which was closed with another chromic suture and 2-0 Vicryl was placed in figure-of-8 in another area of bleeding with good hemostasis and good closure. The posterior cul-de-sac was wiped free of blood and clot with moist lap sponge and the uterus was returned to the peritoneal cavity. The lateral gutters were wiped free of blood and clot. Again the uterine incision was inspected and noted to be well approximated and good hemostasis. Next, the fascia was closed with 0 Vicryl in a running fashion with good closure and good hemostasis. The subcutaneous fat was irrigated with warm, sterile saline and any areas of bleeding were cauterized with electrocautery. Finally the skin layer was closed with 4-0 undyed Vicryl in a running subcuticular fashion. Steri-Strips and occlusive dressing were placed over the incision and the patient was transferred to the recovery room in excellent condition.
[2017-10-07] MEDS: FERREX 150 PO SCH (11:04)
[2017-10-07] MEDS: Colace 100 MG PO SCH ×2 (11:04→20:16)
[2017-10-07 11:38] VITALS: O2SAT 100
[2017-10-08] MEDS: MOTRIN 400 MG PO PRN ×2 (05:24→14:11)
[2017-10-08] MEDS: NORCO 5/325 MG PO PRN ×3 (06:53→19:37)
--- NOTE | 2017-10-08 06:53 | PCM.DS ---
Discharge Summary Date of Admission: 10/06/17 18:23 Admitting Physician: OVI BAUGH Consults: Consults on Case 10/06/17 18:23 Notify Anesthesia Provider ROUTINE Notify Physician OF ADMISSION 10/06/17 19:56 Notify Anesthesia Provider Primary Care Provider: OVI BAUGH Allergies Allergies No Known Drug Allergies Allergy (Verified 01/24/17 14:21) Hospital Summary - Hospital Course Hospital Course: 21yo arrived in labor at 36 6/7 wks EGA in labor, breech with a history of bicornuate uterus. no complications, doing well post-operatively. - Vitals & Intake/Output Vital Signs: Vital Signs Temperature 98.0 F 10/08/17 02:05 Pulse Rate 87 10/08/17 02:05 Respiratory Rate 18 10/08/17 02:05 Blood Pressure 139/72 10/08/17 02:05 O2 Sat by Pulse Oximetry 100 10/07/17 09:00 Intake & Output: Intake & Output 10/05/17 10/06/17 10/07/17 10/08/17 11:59 11:59 11:59 11:59 Intake Total 1877 426 Output Total 1450 300 Balance 427 126 Weight 164 kg - Lab Result Diagrams: 10/07/17 05:35 Discharge Exam General Appearance: no apparent distress, alert Skin Exam: normal color, warm, dry Respiratory Exam: normal breath sounds, lungs clear, No respiratory distress Cardiovascular Exam: regular rate/rhythm, normal heart sounds Gastrointestinal/Abdomen Exam: soft, No tenderness, No mass Extremity Exam: normal inspection, normal range of motion Final Diagnosis/Problem List - Final Discharge Diagnosis/Problem (1) delivery delivered Current Visit: Yes Status: Acute (2) Bicornate uterus Current Visit: Yes Status: Acute (3) () Current Visit: Yes Status: Acute - Discharge Disposition: Home, Self-Care Condition: Stable Prescriptions: [place] Polysaccharides Complex [Ferrex 150] 150 mg PO DAILY #30 capsule Ibuprofen 600 mg PO Q8H PRN PRN #30 tablet PRN Reason: Pain Hydrocodone/Acetaminophen [[place] 5-325 Tablet] 1 each PO Q4-6HPRN PRN #30 tablet MDD 6 PRN Reason: Pain Continue Comb No.42/Folic Acid [Prena1 Chew Tablet] 1.4 mg PO DAILY Discontinued Nifedipine 10 mg [Procardia 10 mg] 10 mg PO TID Follow up with: OVI BAUGH MD [Primary Care Provider] - 1 Week
[2017-10-08] MEDS: Colace 100 MG PO SCH (09:17)
[2017-10-08] MEDS: FERREX 150 PO SCH (09:17)
[2017-10-08] MEDS ORDERED: NORCO 5/325 MG PO ONE (11:00)
[2017-10-08] MEDS ORDERED: DEMEROL 75 MG IM PRN (20:00)
[2017-10-08 20:05] VITALS: BP 136/71; PULSE 100
== END 2017-10-08 21:35 | disposition home or self-care (01) | DRG 766 ==
LOC: OB 18:05 → OBSVTOIN 18:23 → OB 18:23
PROVIDERS: ADMIT Family Medicine; ATTEND Family Medicine
PROC: 10D00Z1 Extraction of Products of Conception, Low, Open Approach (ICD-10-PCS; principal; 2017-10-06)
DX: O32.1XX0 Maternal care for breech presentation, not applicable or unspecified (principal); Z3A.36 36 weeks gestation of pregnancy; Z37.0 Single live birth; O34.03 Maternal care for unspecified congenital malformation of uterus, third trimester; Q51.3 Bicornate uterus
CPT/HCPCS: 36415; 64488; 76937; 76942; 80307; 81000; 85025; 85027; 85610; 85730; 86850; 86900; 86901; 87086; 88307; 90715; 94799; 99140; G0378; J0690; J1100; J2274; J2370; J2405; J2590; J2795; L0625; A9270-GY

== ENCOUNTER 2020-09-24 10:41 | Day surgery (SDC) | payer MEDICAID, OTHER ==
--- NOTE | 2020-09-24 08:52 | HP ---
DATE OF SURGERY: 09/24/2020 HISTORY OF PRESENT ILLNESS: The patient is a 24 year-old with right upper quadrant pain, nausea and vomiting that has been going on for a while and now maybe some change a little bit. Ultrasound showed sludge, tiny polyp but no gallstones. PAST MEDICAL HISTORY: She denies any chronic illnesses. PAST SURGICAL HISTORY: section in the past. MEDICATIONS: She has been on some nausea medication. ALLERGIES: NKDA. FAMILY HISTORY: Diabetes, hypothyroid, heart disease, gallbladder problems in the family. SOCIAL HISTORY: She does use some tobacco. Denies alcohol abuse. REVIEW OF SYSTEMS: Fourteen systems reviewed. No chest pain or palpitations. Other systems negative or noncontributory as above and per preadmission questionnaire. PHYSICAL EXAMINATION: GENERAL: No acute distress. HEENT: Sclerae nonicteric. NECK: No JVD. CHEST: Equal excursion, nonlabored breathing. CVS: Regular rate and rhythm. ABDOMEN: Soft, some mild tenderness right upper quadrant. No peritoneal signs. EXTREMITIES: No significant edema. NEURO: Alert, oriented, moving extremities symmetrically. PSYCH: Appropriate mood and affect. IMPRESSION: Symptomatic biliary colic, acute exacerbation of chronic cholecystitis. Ultrasound showed sludge and gallbladder polyp, no gallstone. Due to symptomatic biliary colic, I feel she will benefit from cholecystectomy. She was shown the risk sheet and gallbladder pamphlet, explained the procedure in detail including but not limited to bleeding or infection, risk of trocar injury or hernia, risk of bowel, bladder or blood vessel injury, risk of bile leak, bile duct injury, retained stone or sludge possibly requiring further procedure either open or ERCP, general risk of anesthesia, deep venous thrombosis, pulmonary embolism, pneumonia, perioperative risk of aches, pains, bloating, constipation and/or loose stools possibly even chronic in nature, possibly procedure may not improve her symptoms. She may need further work up and/or testing, endoscopy, other studies or procedures. She understands all of the above but not limited to, will proceed with laparoscopic cholecystectomy possible open as an outpatient.
[~2020-09-24 10:41] MED LIST changes: -Astramorph-Pf 5 MG/10 ML IV ONE; -Decadron 4 MG INJ IV ONE; +Lactated Ringers 1,000 ML IV ONE; -Naropin 0.5% 30 ML VIAL IJ ONE; -PHENYLEPHRINE HCL IV ONE; -Pitocin 10 UNITS/ML IV ONE; +Sensorcaine 0.25% 10 ML ONE; -Zofran 4 MG/2 ML VIAL IV ONE
[2020-09-24] MEDS ORDERED: MEFOXIN 2 GM PREMIX** 2 GM/50 ML ML IV ONE (10:50)
[2020-09-24] MEDS ORDERED: Lactated Ringers 1,000 ML IV ONE (10:50)
[2020-09-24] MEDS ORDERED: Lactated Ringers 1,000 ML IV SCH (11:00)
[2020-09-24] MEDS ORDERED: MEFOXIN 2 GM PREMIX** 2 GM/50 ML ML IV SCH (11:00)
[2020-09-24] MEDS: Versed 2 MG/2 ML Injection IV PRN ×2 (11:22→11:31)
[2020-09-24] MEDS ORDERED: DIPRIVAN 200 MG/20 ML IV ONE (11:51)
[2020-09-24] MEDS ORDERED: SUBLIMAZE 250 MCG/5 ML ONE (11:51)
[2020-09-24] MEDS ORDERED: Zemuron 100 MG/10 ML ONE (11:51)
[2020-09-24] MEDS ORDERED: Versed 2 MG/2 ML Injection ONE (11:51)
[2020-09-24] MEDS ORDERED: BRIDION 200MG/2ML IV ONE (11:54)
[2020-09-24] MEDS ORDERED: TORAdol 30 mg Injection ONE (13:15)
[2020-09-24] MEDS ORDERED: SUBLIMAZE 100 MCG/2 ML ONE (13:51)
[2020-09-24] MEDS ORDERED: Hydromorphone 1 mg/ml Injection ONE (13:51)
[2020-09-24] MEDS ORDERED: MORPHINE SULFATE 10 MG/ML ONE (14:13)
[2020-09-24] MEDS ORDERED: Zofran 4 MG/2 ML VIAL ONE (14:13)
--- NOTE | 2020-09-24 15:26 | OP ---
SURGERY DATE/TIME: 09/24/2020 1254 PREOPERATIVE DIAGNOSIS: Acute exacerbation of chronic cholecystitis, symptomatic biliary sludge, possible gallbladder polyp on ultrasound. POSTOPERATIVE DIAGNOSIS: Acute exacerbation of chronic cholecystitis, symptomatic biliary sludge, possible gallbladder polyp on ultrasound. PROCEDURE: Laparoscopic cholecystectomy. SURGEON: Dr. Gabriel Smith. ANESTHESIA: General. ESTIMATED BLOOD LOSS: Minimal. INDICATIONS: As noted above. Risks and benefits explained in detail but not limited to and consent obtained. DESCRIPTION OF PROCEDURE AND FINDINGS: The patient was taken to the operating room. General anesthesia induced. Abdomen prepped and draped in the usual sterile fashion. After official time out and no disagreement with planned procedure, a transverse incision made infraumbilical area due to supraumbilical piercing to avoid. Fascia grasped and pulled upward. Veress needle inserted and tested with saline. Pneumoperitoneum accomplished insufflating opening pressure of 0-15. An 11 mm bladeless port and camera inserted without difficulty followed by two - 5 mm right upper quadrant ports and 5 mm epigastric port. The gallbladder grasped retracted over the edge of the liver. It had some mild chronic inflammatory reaction with some omental adhesions. It was dissected posterior, lateral to anterior fashion. Slowly and carefully cystic duct and infundibular area slowly and carefully well skeletonized until the critical view obtained anteriorly and posteriorly. There was an anterior lying artery that was coming across anterior to cystic duct and infundibular junction. This is carefully isolated. It was clipped x3 and divided. This allowed access to the cystic duct and infraumbilical junction this is slowly and carefully well skeletonized until critical view obtained anterior and posterior. Once this was accomplished cystic duct and cystic artery clipped x3 and divided in usual fashion. Gallbladder slowly and carefully dissected free from its dense attachment to liver bed, clipping additional oozing side branches off the cystic artery directly on the gallbladder wall as necessary. Just prior to releasing from final attachments to the anterior edge of the liver, the liver bed re-inspected. Clips noted in place in cystic duct and cystic artery stumps. No signs of any active bleeding or bile leakage. I was felt there was no benefit from drain placement. Gallbladder then released from its final attachments to anterior edge of the liver. It was pulled up and out the 10/11 port site and passed off. The 10/11 fascial defect closed with puncture closure device with #1 Vicryl. The liver bed was re-inspected one last time. Copious amount of irrigation accomplished lateral to the liver. Liver bed re-inspected. Clips noted to be in place in cystic duct and cystic artery stumps. No signs of any active bleeding or bile leakage. It was felt there is no benefit from drain placement. Pneumoperitoneum decompressed. The wound irrigated out. Skin incision closed with 4-0 Vicryl. Steri-Strips and sterile dressing applied. 0.25% Marcaine local injected along the skin incision fascial defect at the beginning of the case. There were no immediate complications. Findings discussed with her mother out in the waiting area. She may have some bruising around skin incision site. Good hemostasis at the end of the procedure. Steri-Strips and sterile dressings applied. She was transferred to recovery in stable condition. Findings discussed with family out in the waiting area.
[2020-09-24 15:56] VITALS: BP 147/79; PULSE 65; O2SAT 100
== END 2020-09-24 15:45 | disposition home or self-care (01) ==
LOC: SDC 10:41
PROVIDERS: ATTEND Surgery
DX: K81.2 Acute cholecystitis with chronic cholecystitis (principal)
CPT/HCPCS: 84703; J0694; J1170; J1885; J2250; J2270; J2405; J2704; J3010

== ENCOUNTER 2022-03-14 11:28 | Emergency (ER) | payer OTHER ==
--- NOTE | 2022-03-14 12:02 | ERPHSYRPT ---
- History of Present Illness Historian: patient Exam Limitations: other (Poor historian) Patient Subjective Stated Complaint: Abdominal pain-possible Triage Nursing Assessment: Patient ambulated back to ED and transferred self to bed. Patient A+OX 3. Patient's skin pink ,warm and dry. Patient complains of constant lower abdominal pain cramping with vaginal bleeding. Patient states she is one week late on period. Patient complains of N/V. Physician History: 26 yo wf w N/V last night and lower abdominal pain rated 4/10. Pain is sharp and nothing makes it better or worse. She also just started her period but is 1 week late. Her OC use has been intermittant. She denies dysuria and frequency. Cough/coryza are denied. Timing/Duration: yesterday (Last night) Activities at Onset: rest Quality: sharpness Abdominal Pain Onset Location: periumbilical Pain Radiation: no radiation Severity of Pain-Max: moderate Severity of Pain-Current: mild Modifying Factors: Improves With: nothing Associated Symptoms: diarrhea, nausea, vomiting, No back, No chest pain, No diaphoresis, No fever/chills, No fatigue, No headache, No heartburn, No loss of appetite, No neck pain, No rash, No shortness of breath, No syncope, No weakness Previous symptoms: no prior history Allergies/Adverse Reactions: No Known Drug Allergies Allergy (Verified 03/14/22 11:35) Home Medications: Norgestimate-Ethinyl Estradiol [Qxh-Wv-Xrezawwym Tablet] 1 tab PO DAILY 03/14/22 [History] Hx Tetanus, Diphtheria Vaccination/Date Given: No Hx Influenza Vaccination/Date Given: No Hx Pneumococcal Vaccination/Date Given: No Immunizations Up to Date: Yes Travel Risk - International Travel Have you traveled outside of the country in past 3 weeks: No - Coronavirus Screening Are you exhibiting any of the following symptoms?: No Close contact with a COVID-19 positive Pt in past 14-21 Days: No - Vaccine Status Have you recieved a Covid-19 vaccination: No - Review of Systems Constitutional: No Symptoms Eyes: No Symptoms Ears, Nose, & Throat: No Symptoms Respiratory: No Symptoms Cardiac: No Symptoms Abdominal/Gastrointestinal: Abdominal Pain, Nausea, Vomiting, Diarrhea Genitourinary Symptoms: No Symptoms Musculoskeletal: No Symptoms Skin: No Symptoms Neurological: No Symptoms Psychological: No Symptoms Endocrine: No Symptoms Hematologic/Lymphatic: No Symptoms Immunological/Allergic: No Symptoms - Past Medical History Pertinent Past Medical History: Yes Neurological History: No Pertinent History ENT History: No Pertinent History Cardiac History: No Pertinent History Respiratory History: No Pertinent History Endocrine Medical History: No Pertinent History Musculoskeletal History: No Pertinent History GI Medical History: No Pertinent History Psycho-Social History: No Pertinent History Female Reproductive Disorders: Other Other Medical History: toxic shock syndrome, anemia, pcos, uterus shaped like a heart - Past Surgical History Past Surgical History: Yes Neuro Surgical History: No Pertinent History Cardiac: No Pertinent History Respiratory: No Pertinent History Gastrointestinal: No Pertinent History Genitourinary: No Pertinent History Musculoskeletal: No Pertinent History Female Surgical History: Section - Social History Smoking Status: Current every day smoker How long have you smoked: 3 years Exposure to second hand smoke: Yes Drug Use: none Patient Lives Alone: No Significant Family History: no pertinent family hx - Female History Hx Last Menstrual Period: last month Hx Now: No - Nursing Vital Signs Nursing Vital Signs: Initial Vital Signs Temperature 96.9 F 03/14/22 11:38 Pulse Rate 73 03/14/22 11:38 Respiratory Rate 18 03/14/22 11:38 Blood Pressure 145/91 03/14/22 11:38 O2 Sat by Pulse Oximetry 100 03/14/22 11:38 Pain Scale Pain Intensity 4 - Physical Exam General Appearance: no apparent distress Eye Exam: PERRL/EOMI Ears, Nose, Throat Exam: normal ENT inspection, TMs normal, pharynx normal, moist mucous membranes Neck Exam: normal inspection, non-tender, supple, full range of motion, No meningismus, No mass, No Brudzinski, No Kernig's Respiratory Exam: normal breath sounds, lungs clear, airway intact Cardiovascular Exam: regular rate/rhythm, normal heart sounds, normal peripheral pulses, capillary refill <2 sec, No murmur Gastrointestinal/Abdomen Exam: soft, normal bowel sounds, tenderness (Mild infra-umbilical TTP wo guarding or rebound) Back Exam: normal inspection, normal range of motion, No CVA tenderness, No vertebral tenderness Extremity Exam: normal inspection, normal range of motion Neurologic Exam: alert, oriented x 3, cooperative, facility examiner II-XII nml as tested, normal mood/affect, nml cerebellar function, nml station & gait, sensation nml, No motor deficits, No sensory deficit Skin Exam: normal color, warm, dry, No rash Lymphatic Exam: No adenopathy SpO2 Interpretation: normal SpO2: 100 O2 Delivery: Room Air - Course Nursing assessment & vital signs reviewed: Yes - CT Exams Abdomen/Pelvis CT Interpretation: Discussed w/radiologist (R ovarian cyst/Appendix not visualized) - Radiology Ultrasound Exam Pelvis Ultrasound: discussed w/radiologist Ordered Tests: Active Orders 24 hr Category Date Time Status ABDOMEN AND PELVIS W/0 CONTRAS [CT] Stat Exams 03/14/22 12:26 Completed PELVIC [US] Stat Exams 03/14/22 14:21 Completed CBC W DIFF Stat Lab 03/14/22 13:28 Completed HCG,QUALITATIVE URINE Stat Lab 03/14/22 11:56 Completed UA W/RFX CULTURE Stat Lab 03/14/22 11:56 Completed Medication Summary Discontinued Medications Generic Name Dose Route Start Last Admin Trade Name Freq PRN Reason Stop Dose Admin Ketorolac Tromethamine 30 mg 03/14/22 12:27 03/14/22 12:30 Ketorolac Tromethamine 30 Mg/Ml Inj IM 03/14/22 12:28 30 mg STAT ONE Administration Ketorolac Tromethamine Confirm 03/14/22 12:29 Ketorolac Tromethamine 30 Mg/Ml Inj Administered 03/14/22 12:30 Dose 30 mg .ROUTE .STSCRM-MED ONE Lab/Rad Data: Laboratory Result Diagrams 03/14/22 13:28 03/14/22 13:28 Laboratory Results 03/14/22 03/14/22 03/14/22 Range/Units 13:28 13:28 11:56 WBC 4.5 (4.0-10.5) x10^3/uL RBC 4.27 (4.1-5.4) x10^6/uL Hgb 10.1 L (12.0-16.0) g/dL Hct 32.8 L (35-47) % MCV 76.8 L (78-100) fL MCH 23.7 L (26-32) pg MCHC 30.8 L (32-36) g/dL RDW 15.7 H (11.5-14.0) % Plt Count 214 (150-450) x10^3/uL MPV 10.2 (7.5-11.0) fL Gran % 63.9 (36.0-66.0) % Immature Gran % (Auto) 0.0 (0.00-0.4) % Nucleat RBC Rel Count 0.0 (0.00-0.1) % Eos # (Auto) 0.09 (0-0.5) x10^3/uL Immature Gran # (Auto) 0.00 (0.00-0.03) x10^3u/L Absolute Lymphs (auto) 1.24 (1.0-4.6) x10^3/uL Absolute Monos (auto) 0.29 (0.0-1.3) x10^3/uL Absolute Nucleated RBC 0.00 (0.00-0.01) x10^3u/L Lymphocytes % 27.3 (24.0-44.0) % Monocytes % 6.4 (0.0-12.0) % Eosinophils % 2.0 (0.00-5.0) % Basophils % 0.4 (0.0-0.4) % Absolute Granulocytes 2.90 (1.4-6.9) x10^3/uL Basophils # 0.02 (0-0.4) x10^3/uL Sodium Direct 140 (138-146) mmol/L Potassium 3.8 (3.5-4.9) mmol/L Chloride 104 (98-109) mmol/L Carbon Dioxide 25 (24-29) mmol/L Venous BUN 7 L (8-26) mg/dL Creatinine 0.7 (0.6-1.3) mg/dL Glucose 88 (70-105) mg/dL Ionized Calcium 1.13 (1.12-1.32) mmol/L Urinalys Dipstick Clnc MAIN LAB Urine Color PINK (YELLOW) Urine Appearance CLEAR (CLEAR) Urine pH 5.5 (5-6) Ur Specific [place] 1.010 (1.005-1.025) POC Urine Protein Conf NEGATIVE (Negative) Urine Ketones NEGATIVE (NEGATIVE) Urine Nitrite NEGATIVE (NEGATIVE) Urine Bilirubin NEGATIVE (NEGATIVE) Urine Urobilinogen 0.2 (0-1) mg/dL Urine Leukocytes NEGATIVE (NEGATIVE) Urine WBC (Auto) 3-5 (0-5) /HPF Urine RBC (Auto) 16-25 (0-2) /HPF U Epithel Cells (Auto) RARE (FEW) /HPF Urine Bacteria (Auto) RARE (NEGATIVE) /HPF Urine RBC LARGE (0-5) [place]/ul Urine Mucus (Auto) SLIGHT (NEGATIVE) /HPF Ur Culture Indicated? NO Urine Glucose NEGATIVE (NEGATIVE) mg/dL Urine HCG, Qual (Negative) 03/14/22 Range/Units 11:56 WBC (4.0-10.5) x10^3/uL RBC (4.1-5.4) x10^6/uL Hgb (12.0-16.0) g/dL Hct (35-47) % MCV (78-100) fL MCH (26-32) pg MCHC (32-36) g/dL RDW (11.5-14.0) % Plt Count (150-450) x10^3/uL MPV (7.5-11.0) fL Gran % (36.0-66.0) % Immature Gran % (Auto) (0.00-0.4) % Nucleat RBC Rel Count (0.00-0.1) % Eos # (Auto) (0-0.5) x10^3/uL Immature Gran # (Auto) (0.00-0.03) x10^3u/L Absolute Lymphs (auto) (1.0-4.6) x10^3/uL Absolute Monos (auto) (0.0-1.3) x10^3/uL Absolute Nucleated RBC (0.00-0.01) x10^3u/L Lymphocytes % (24.0-44.0) % Monocytes % (0.0-12.0) % Eosinophils % (0.00-5.0) % Basophils % (0.0-0.4) % Absolute Granulocytes (1.4-6.9) x10^3/uL Basophils # (0-0.4) x10^3/uL Sodium Direct (138-146) mmol/L Potassium (3.5-4.9) mmol/L Chloride (98-109) mmol/L Carbon Dioxide (24-29) mmol/L Venous BUN (8-26) mg/dL Creatinine (0.6-1.3) mg/dL Glucose (70-105) mg/dL Ionized Calcium (1.12-1.32) mmol/L Urinalys Dipstick Clnc Urine Color (YELLOW) Urine Appearance (CLEAR) Urine pH (5-6) Ur Specific [place] (1.005-1.025) POC Urine Protein Conf (Negative) Urine Ketones (NEGATIVE) Urine Nitrite (NEGATIVE) Urine Bilirubin (NEGATIVE) Urine Urobilinogen (0-1) mg/dL Urine Leukocytes (NEGATIVE) Urine WBC (Auto) (0-5) /HPF Urine RBC (Auto) (0-2) /HPF U Epithel Cells (Auto) (FEW) /HPF Urine Bacteria (Auto) (NEGATIVE) /HPF Urine RBC (0-5) Pcaheco/ul Urine Mucus (Auto) (NEGATIVE) /HPF Ur Culture Indicated? Urine Glucose (NEGATIVE) mg/dL Urine HCG, Qual NEGATIVE (Negative) - Progress Progress Note: 03/14/22 14:57 Pain improved w 30mg IM Toradol Counseled pt/family regarding: lab results, diagnosis, need for follow-up, rad results - Departure Departure Disposition: Home Clinical Impression: Abdominal pain, Ovarian cyst Condition: Stable Critical Care Time: No Referrals: OVI BAUGH MD [Primary Care Provider] - Follow up/PCP as directed Instructions: Severe Abdominal Pain, Adult (DC), Ovarian Cyst (DC) Additional Instructions: Motrin/Tylenol for pain Follow up with your family MD Return to ER for increasing pain or temperature greater than 100.5
[2022-03-14 12:16] LABS: Appearance CLEAR (CLEAR); Bilirubin NEGATIVE (NEGATIVE); Glucose NEGATIVE (NEGATIVE); Ketones NEGATIVE (NEGATIVE)
[2022-03-14 12:17] LABS: Dipstick done @ ? MAIN LAB; Nitrite NEGATIVE (NEGATIVE); Ph 5.5 (5-6); Protein,Urine Dip NEGATIVE (Negative); RBC LARGE Ery/ul (0-5); Urobilinogen 0.2 mg/dL (0-1)
[2022-03-14 12:19] LABS: Bacteria RARE /HPF (NEGATIVE); Epithelial Cells RARE /HPF (FEW); Mucus SLIGHT /HPF (NEGATIVE)
[2022-03-14 12:20] LABS: Urine Cultured Indicated? NO
[2022-03-14] MEDS ORDERED: TORAdol 30 mg Injection IM ONE (12:27)
[2022-03-14] MEDS ORDERED: TORAdol 30 mg Injection ONE (12:29)
--- NOTE | 2022-03-14 12:52 | XRAY ---
Indication: Pain and vomiting. Multiple contiguous axial images obtained through abdomen and pelvis without contrast. Comparison: None Lung bases clear. Heart not enlarged. Noncontrasted stomach and bowel loops appear nonobstructed. Appendix not visualized. 3.5 cm right ovary cyst. Tiny cul-de-sac fluid presumed physiologic from rupture/leaking cyst. No free air. Previous cholecystectomy. Remaining liver, pancreas, spleen, adrenal glands, kidneys, ureters, bladder, uterus, and aorta are unremarkable for noncontrast exam. Osseous structures intact. No ventral or inguinal hernias. Impression: 1. 3.5 cm right ovary cyst and tiny physiologic cul-de-sac fluid. 2. Remaining CT abdomen/pelvis without contrast exam is negative.
[2022-03-14 13:38] LABS: Basophil (Absolute #) 0.02 x10^3/uL (0-0.4); Eosinophil (Absolute #) 0.09 x10^3/uL (0-0.5); Hematocrit 32.8 % (35-47); Hemoglobin 10.1 g/dL (12.0-16.0); Lymphocyte (Absolute #) 1.24 x10^3/uL (1.0-4.6); Lymphocytes % 27.3 % (24.0-44.0); Mean Cell Volume 76.8 fL (78-100); Mean Corpuscular Hemoglobin 23.7 pg (26-32); Mean Corpuscular Hgb Concent. 30.8 g/dL (32-36); Mean Platelet Volume 10.2 fL (7.5-11.0); Monocyte (Absolute #) 0.29 x10^3/uL (0.0-1.3); Monocytes % 6.4 % (0.0-12.0); Neutrophil % 63.9 % (36.0-66.0); Platelet Count 214 x10^3/uL (150-450); Red Blood Count 4.27 x10^6/uL (4.1-5.4); Red Cell Distribution Width 15.7 % (11.5-14.0); White Blood Count 4.5 x10^3/uL (4.0-10.5)
[2022-03-14 14:28] LABS: ISTAT CREA 0.7 mg/dL (0.6-1.3); ISTAT K 3.8 mmol/L (3.5-4.9)
--- NOTE | 2022-03-14 14:37 | XRAY ---
Indication: Pelvic pain. Two-dimensional transvaginal pelvic sonogram performed. Comparison: January 30, 2017 Uterus again anteverted measuring 7.7 x 3.3 x 5.5 cm. No focal solid/cystic uterine mass. Endometrial stripe measures 5.2 mm. Again sonographic features suggest bicornuate uterus. No endometrial cavity mass or fluid collection. Right ovary measures 4.7 x 2.8 x 4.4 cm and the left measures 3.4 x 2.1 x 2.1 cm. Normal follicular cysts and perfusion bilaterally. Right ovary demonstrates a 3.5 cm dominant benign cyst. Small cul-de-sac fluid presumed physiologic from rupture/leaking spondylolisthesis. Impression: New 3.5 cm dominant right ovary cyst and small physiologic cul-de-sac fluid. Again sonographic appearance for bicornuate uterus. Remaining transvaginal pelvic sonogram is negative.
[2022-03-14 15:01] VITALS: BP 126/79; PULSE 78; O2SAT 96
== END 2022-03-14 15:11 | disposition home or self-care (01) ==
LOC: ED 11:28
DX: N83.201 Unspecified ovarian cyst, right side (principal); R10.30 Lower abdominal pain, unspecified; R11.2 Nausea with vomiting, unspecified; Z72.0 Tobacco use; Z28.310 Unvaccinated for COVID-19
CPT/HCPCS: 36415; 74176; 76856; 80047; 81015; 81025; 85025; 96372; 99284; J1885

== ENCOUNTER 2023-10-24 11:18 | Emergency (ER) | payer OTHER ==
[2023-10-24 11:39] LABS: Absolute Neutrophil Ct (ANC) 5.32 x10^3/uL (1.4-6.9); BASOPHIL % 0.6 % (0.0-0.4); Basophil (Absolute #) 0.04 x10^3/uL (0-0.4); Eosinophil % 1.7 % (0.00-5.0); Eosinophil (Absolute #) 0.12 x10^3/uL (0-0.5); Hematocrit 34.7 % (35-47); Hemoglobin 11.6 g/dL (12.0-16.0); IMMATURE GRAN # 0.04 x10^3u/L (0.00-0.03); IMMATURE GRAN % 0.6 % (0.00-0.4); Lymphocyte (Absolute #) 1.43 x10^3/uL (1.0-4.6); Lymphocytes % 19.8 % (24.0-44.0); Mean Cell Volume 77.3 fL (78-100); Mean Corpuscular Hemoglobin 25.8 pg (26-32); Mean Corpuscular Hgb Concent. 33.4 g/dL (32-36); Mean Platelet Volume 9.2 fL (7.5-11.0); Monocyte (Absolute #) 0.28 x10^3/uL (0.0-1.3); Monocytes % 3.9 % (0.0-12.0); Neutrophil % 73.4 % (36.0-66.0); Platelet Count 191 x10^3/uL (150-450); Red Blood Count 4.49 x10^6/uL (4.1-5.4); Red Cell Distribution Width 17.1 % (11.5-14.0); White Blood Count 7.2 x10^3/uL (4.0-10.5)
[2023-10-24 11:49] LABS: Appearance Turbid (Clear); Bacteria Many /HPF (None Seen); Bilirubin Small (Negative); Blood Large (Negative); Epithelial Cells Moderate /HPF (None Seen); Glucose, Urine Negative (Negative); Hyaline Casts NONE SEEN /LPF (0-2); Ketones 40 (Negative); Leukocyte Esterase Moderate (Negative); Nitrite Negative (Negative); Protein,Urine Dip 100 (Negative); RBC >100 /HPF (0-5); Urobilinogen 0.2 mg/dL (0.2); WBC 51-100 /HPF (0-5)
--- NOTE | 2023-10-24 11:51 | ERPHSYRPT ---
- History of Present Illness Time Seen by Provider: 10/24/23 11:44 Source: patient Exam Limitations: no limitations Patient Subjective Stated Complaint: bleeding with Triage Nursing Assessment: Patient reports to ER with complaints of vaginal bleeding. Patient reports that she is 11 weeks and 1 day pregant. Patient reports that she started spotting about a week ago and this morning around 0300 she woke up with abdominal cramping and passed a large blood clot. Patient reports that she had an ultrasound on 10/22/23 and the baby was active and healthy. Patient reports that she had intercourse yesterday evening prior to passing the blood clot. Patient reports that she is high risk due to two cervix and two uterus. Pad in underwear clean and dry - bleeding only occurs when using the restroom. Physician History: Patient reports to ER with complaints of vaginal bleeding. Patient reports that she is 11 weeks and 1 day pregant. Patient reports that she started spotting about a week ago and this morning around 0300 she woke up with abdominal cramping and passed a large blood clot. Patient reports that she had an ultrasound on 10/22/23 and the baby was active and healthy. Patient reports that she had intercourse yesterday evening prior to passing the blood clot. Patient reports that she is high risk due to two cervix and two uterus. Pad in underwear clean and dry - bleeding only occurs when using the restroom. Timing/Duration: today Activites at Onset: sexual activity Pain Radiation: none Severity of Pain-Max: none Severity of Pain-Current: none Prior abdominal problems: none Modifying Factors: Improves With: nothing Associated Symptoms: denies symptoms Allergies/Adverse Reactions: No Known Drug Allergies Allergy (Verified 10/24/23 11:25) Home Medications: Ferrous Sulfate 325 mg [Feosol 325 mg] 325 mg PO DAILY 10/24/23 [History] Mv-Mn/Iron/FA/Herbal/Digestive [ One Tablet] 1 tab PO DAILY 10/24/23 [History] Hx Tetanus, Diphtheria Vaccination/Date Given: No Hx Influenza Vaccination/Date Given: No Hx Pneumococcal Vaccination/Date Given: No Travel Risk - International Travel Have you traveled outside of the country in past 3 weeks: No - Emerging Infectious Disease Are you exhibiting symptoms associated with any current EIDs: No - Review of Systems Constitutional: No Symptoms Eyes: No Symptoms Ears, Nose, & Throat: No Symptoms Respiratory: No Symptoms Cardiac: No Symptoms Abdominal/Gastrointestinal: No Symptoms Genitourinary Symptoms: Vaginal Bleeding Musculoskeletal: No Symptoms Skin: No Symptoms Neurological: No Symptoms Psychological: No Symptoms - Past Medical History Pertinent Past Medical History: Yes Neurological History: No Pertinent History ENT History: No Pertinent History Cardiac History: No Pertinent History Respiratory History: No Pertinent History Endocrine Medical History: No Pertinent History Musculoskeletal History: No Pertinent History GI Medical History: No Pertinent History History: No Pertinent History Psycho-Social History: No Pertinent History Female Reproductive Disorders: Other Other Medical History: toxic shock syndrome, anemia, pcos, two uterus and cervix - Past Surgical History Past Surgical History: Yes Neuro Surgical History: No Pertinent History Cardiac: No Pertinent History Respiratory: No Pertinent History Gastrointestinal: Cholecystectomy Genitourinary: No Pertinent History Musculoskeletal: No Pertinent History Female Surgical History: Section Significant Family History: no pertinent family hx - Female History Hx Now: Yes Gestational Age: 11 weeks 1 - Social History Smoking Status: Former smoker How long have you smoked: 3 years Exposure to second hand smoke: Yes Drug Use: none Patient Lives Alone: No - Nursing Vital Signs Nursing Vital Signs: Initial Vital Signs Pulse Rate 81 10/24/23 11:26 Respiratory Rate 18 10/24/23 11:26 Blood Pressure 112/59 10/24/23 11:26 O2 Sat by Pulse Oximetry 98 10/24/23 11:26 Pain Scale Pain Intensity 0 - Physical Exam General Appearance: no apparent distress, alert Eye Exam: PERRL/EOMI, eyes nml inspection Ears, Nose, Throat Exam: normal ENT inspection, TMs normal, pharynx normal, moist mucous membranes Neck Exam: normal inspection, non-tender, supple, full range of motion Respiratory Exam: normal breath sounds, lungs clear, No respiratory distress Cardiovascular Exam: regular rate/rhythm, normal heart sounds, normal peripheral pulses Gastrointestinal/Abdomen Exam: soft, No tenderness, No mass Back Exam: normal inspection, normal range of motion, No CVA tenderness, No vertebral tenderness Extremity Exam: normal inspection, normal range of motion, pelvis stable Neurologic Exam: alert, oriented x 3, cooperative, 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 nml as tested, normal mood/affect, sensation nml, No motor deficits Skin Exam: normal color, warm, dry Lymphatic Exam: No adenopathy SpO2: 98 - Course Nursing assessment & vital signs reviewed: Yes Ordered Tests: Active Orders 24 hr Category Date Time Status IV Insertion STAT Care 10/24/23 11:29 Active CBC W DIFF Stat Lab 10/24/23 11:30 Completed CMP Stat Lab 10/24/23 11:30 Completed CULTURE,URINE Stat Lab 10/24/23 11:27 Received HCG QUALITATIVE, SERUM Stat Lab 10/24/23 11:30 Completed HCG, Quantitative (Inhouse) Stat Lab 10/24/23 11:30 Completed UA W/RFX UR CULTURE Stat Lab 10/24/23 11:27 Completed Medication Summary Discontinued Medications Generic Name Dose Route Start Last Admin Trade Name Michealq PRN Reason Stop Dose Admin Ceftriaxone Sodium 1 gm in 100 mls @ 200 mls/hr 10/24/23 12:23 10/24/23 12:29 Rocephin 1 Gm / 100 Ml Nacl IV 10/24/23 12:52 200 ml/hr STAT ONE 200 mls/hr Administration Ceftriaxone Sodium Confirm 10/24/23 12:26 Rocephin 1 Gm / 100 Ml Nacl Administered 10/24/23 12:27 Dose 1 gm in 100 mls @ ud IV .STK-MED ONE Lab/Rad Data: Laboratory Result Diagrams 10/24/23 11:30 10/24/23 11:30 Laboratory Results 10/24/23 10/24/23 10/24/23 Range/Units 11:30 11:30 11:30 WBC (4.0-10.5) x10^3/uL RBC (4.1-5.4) x10^6/uL Hgb (12.0-16.0) g/dL Hct (35-47) % MCV (78-100) fL MCH (26-32) pg MCHC (32-36) g/dL RDW (11.5-14.0) % Plt Count (150-450) x10^3/uL MPV (7.5-11.0) fL Gran % (36.0-66.0) % Immature Gran % (Auto) (0.00-0.4) % Nucleat RBC Rel Count (0.00-0.1) % Eos # (Auto) (0-0.5) x10^3/uL Immature Gran # (Auto) (0.00-0.03) x10^3u/L Absolute Lymphs (auto) (1.0-4.6) x10^3/uL Absolute Monos (auto) (0.0-1.3) x10^3/uL Absolute Nucleated RBC (0.00-0.01) x10^3u/L Lymphocytes % (24.0-44.0) % Monocytes % (0.0-12.0) % Eosinophils % (0.00-5.0) % Basophils % (0.0-0.4) % Absolute Granulocytes (1.4-6.9) x10^3/uL Basophils # (0-0.4) x10^3/uL Sodium 136 (135-145) mmol/L Potassium 3.8 (3.5-5.1) mmol/L Chloride 104 (98-107) mmol/L Carbon Dioxide 23 (22-30) mmol/L Anion Gap 12.4 (5-15) MEQ/L BUN 9 (7-17) mg/dL Creatinine 0.61 (0.52-1.04) mg/dL Estimated GFR 126.4 ML/MIN Glucose 102 (74-106) mg/dL Calcium 9.6 (8.4-10.2) mg/dL Total Bilirubin 0.80 (0.2-1.3) mg/dL AST 23 (14-36) U/L ALT 9 (0-35) U/L Alkaline Phosphatase 68 (38-126) U/L Serum Total Protein 7.5 (6.3-8.2) g/dL Albumin 4.4 (3.5-5.0) g/dL Serum HCG, Qual POSITIVE (NEGATIVE) Beta HCG, Quant 63302 mIU/ml Urine Color (Yellow) Urine Appearance (Clear) Urine pH (4.6-8.0) Ur Specific [place] (1.005-1.030) Urine Protein (Negative) Urine Glucose (UA) (Negative) mg/dL Urine Ketones (Negative) Urine Blood (Negative) Urine Nitrite (Negative) Urine Bilirubin (Negative) Urine Urobilinogen (0.2) mg/dL Ur Leukocyte Esterase (Negative) U Hyaline Cast (Auto) (0-2) /LPF Urine Microscopic RBC (0-5) /HPF Urine Microscopic WBC (0-5) /HPF Ur Epithelial Cells (None Seen) /HPF Urine Bacteria (None Seen) /HPF Urine Culture Reflexed (NO) 10/24/23 10/24/23 Range/Units 11:30 11:27 WBC 7.2 (4.0-10.5) x10^3/uL RBC 4.49 (4.1-5.4) x10^6/uL Hgb 11.6 L (12.0-16.0) g/dL Hct 34.7 L (35-47) % MCV 77.3 L (78-100) fL MCH 25.8 L (26-32) pg MCHC 33.4 (32-36) g/dL RDW 17.1 H (11.5-14.0) % Plt Count 191 (150-450) x10^3/uL MPV 9.2 (7.5-11.0) fL Gran % 73.4 H (36.0-66.0) % Immature Gran % (Auto) 0.6 H (0.00-0.4) % Nucleat RBC Rel Count 0.0 (0.00-0.1) % Eos # (Auto) 0.12 (0-0.5) x10^3/uL Immature Gran # (Auto) 0.04 H (0.00-0.03) x10^3u/L Absolute Lymphs (auto) 1.43 (1.0-4.6) x10^3/uL Absolute Monos (auto) 0.28 (0.0-1.3) x10^3/uL Absolute Nucleated RBC 0.00 (0.00-0.01) x10^3u/L Lymphocytes % 19.8 L (24.0-44.0) % Monocytes % 3.9 (0.0-12.0) % Eosinophils % 1.7 (0.00-5.0) % Basophils % 0.6 (0.0-0.4) % Absolute Granulocytes 5.32 (1.4-6.9) x10^3/uL Basophils # 0.04 (0-0.4) x10^3/uL Sodium (135-145) mmol/L Potassium (3.5-5.1) mmol/L Chloride (98-107) mmol/L Carbon Dioxide (22-30) mmol/L Anion Gap (5-15) MEQ/L BUN (7-17) mg/dL Creatinine (0.52-1.04) mg/dL Estimated GFR ML/MIN Glucose (74-106) mg/dL Calcium (8.4-10.2) mg/dL Total Bilirubin (0.2-1.3) mg/dL AST (14-36) U/L ALT (0-35) U/L Alkaline Phosphatase (38-126) U/L Serum Total Protein (6.3-8.2) g/dL Albumin (3.5-5.0) g/dL Serum HCG, Qual (NEGATIVE) Beta HCG, Quant mIU/ml Urine Color Red A (Yellow) Urine Appearance Turbid A (Clear) Urine pH 5.0 (4.6-8.0) Ur Specific [place] 1.020 (1.005-1.030) Urine Protein 100 A (Negative) Urine Glucose (UA) Negative (Negative) mg/dL Urine Ketones 40 A (Negative) Urine Blood Large A (Negative) Urine Nitrite Negative (Negative) Urine Bilirubin Small A (Negative) Urine Urobilinogen 0.2 (0.2) mg/dL Ur Leukocyte Esterase Moderate A (Negative) U Hyaline Cast (Auto) NONE SEEN (0-2) /LPF Urine Microscopic RBC >100 A (0-5) /HPF Urine Microscopic WBC 51-100 A (0-5) /HPF Ur Epithelial Cells Moderate A (None Seen) /HPF Urine Bacteria Many A (None Seen) /HPF Urine Culture Reflexed YES (NO) Name: STEPHANIE GALDAMEZ Attending Physician: OVI BAUGH IMAGING REPORT : 1995 Age: 27 Sex: F Location: [facility] Report #: [id number] Exam Date: 10/22/23 Status: REG REF Radiology #: Procedures: [id number] US/OB FOLLOW UP PER [facility] Indication: Threatened miscarriage. Two-dimensional transabdominal early OB ultrasound performed. Comparison: September 28, 2023 Again single intrauterine / pole with mean crown-rump length 5.01 cm corresponding to 11 weeks 5 days. heart rate 165 BPM. New 5 mm subchorionic hemorrhage. Left ovary sonographically unremarkable. Nonvisualization right ovary. No suspicious adnexal mass or free fluid. Impression: Again single viable intrauterine measuring 11 weeks 5 days. Normal progression of . New tiny subchorionic hemorrhage. Previous ultrasound proven bicornuate uterus. Reported by: JAKE AVILA DO Signed by: JAKE AVILA DO Signed rosita e/time: 10/22/23 1124 - Progress Progress: improved Air Movement: good Blood Culture(s) Obtained: No Antibiotics given: Yes Counseled pt/family regarding: lab results, diagnosis, need for follow-up Medical Desision Making - Independent Historian Additional History obtained from: Spouse - Diagnostic Testing Diagnostic test were ordered, analyzed, and reviewed by me: Yes Radiological Interpretation: Interpreted by me, Reviewed by me - Risk of complications Minimal Risk: Minimal risk of morbidity - Departure Departure Disposition: Home Clinical Impression: Bicornate uterus, Vaginal bleeding affecting early , Urinary tract infection affecting care of mother in first trimester, antepartum Condition: Stable Critical Care Time: No Referrals: OVI BAUGH MD [Primary Care Provider] - Follow Up with PCP/3 days Instructions: symptoms, Bleeding in Early (DC), Urinary tract infections in , Smoking in , Bleeding In Early , Preventing injuries during Additional Instructions: Discharge/Care Plan STEPHANIE GALDAMEZ was seen on 10/24/23 in the Emergency Room. The patient was counseled regarding Diagnosis,Lab results, Imaging studies, need for follow up and when to return to the Emergency Room. Prescriptions given: Discharge Note I have spoken with the patient and/or caregivers. I have explained the patient's condition, diagnosis and treatment plan based on the information available to me at this time. I have answered the patient's and/or caregiver's questions and addressed any concerns. The patient and/or caregivers have as good understanding of the patient's diagnosis, condition and treatment plan as can be expected at this point. The vital signs have been stable. The patient's condition is stable and appropriate for discharge from the emergency department. The patient will pursue further outpatient evaluation with the primary care physician or other designated or consulting physician as outlined in the discharge instructions. The patient and/or caregivers are agreeable to this plan of care and follow-up instructions have been explained in detail. The patient and/or caregivers have received these instruction. The patient/and or caregivers are aware that any significant change in condition or worsening of symptoms should prompt an immediate return to this or the closest emergency department or call 911. STEPHANIE GALDAMEZ was seen on 10/24/23 n the Emergency Room. At that time you were treated for an emergent condition, during your visit Laboratory, Radiology and/or other procedures may have been ordered. It is very important that you follow-up with your Primary Care Physician OVI BAUGH within the next 24- 48 hours to review your Emergency Room visit and the final results of testing that was ordered. Some test results such as Urine Cultures, Blood Cultures, and other cultures if ordered will not be finalized for 24-48 hours. If you do not have a Primary Care Provider please call the medical records department at [phone] ext [phone] to obtain a copy of your results or you may sign into our patient portal to obtain these results by visiting us @ [email or web address] and completing the following steps: 1. Click on the Patient Portal link 2. Click the Patient Self Enrollment Link to complete the enrollment form and entering your 3. Once the enrollment form is completed you will receive an email with a temporary ID and password at the email address you provided. 4. Next choose a user name and password. Your user name must be at least 4 characters long and your password must be at least 4 characters long. 5. Choose a security question from the list and provide your answer to the question. If you already have signed into the Health Portal you may access your Health Care Information 26/01 by the following steps: 1. Login to our website @ [email or web address] 2. Enter your original user name and password. FAQS The [facility] Health Portal is an online tool that contains your Lab Results, Radiology Reports, Visit History, Discharge Instructions and Health Summary Lab and Radiology Results will not be available for 72 hours on the portal. The Portal is a secure site, passwords are encryted and URLs are re-written so they cannot be copied and pasted. You and authorized family members are the only ones who can access your Portal. Also there is a timeout feature that protects your information if you leave the Portal page open. If you have technical difficulty please use the Contact Us link on the page this will allow you to submit any questions you have regarding the Portal or you may contact the Medical Record Department at [phone] ext [phone]. Prescriptions: Amoxicillin 500 mg Cap [Amoxil 500 mg] 500 mg PO TID #30 cap
[2023-10-24 11:53] LABS: ADD URINE CULTURE? YES (NO)
[2023-10-24 11:53] LABS: HCG SERUM TEST POSITIVE (NEGATIVE)
[2023-10-24 11:56] LABS: ALBUMIN 4.4 g/dL (3.5-5.0); ANION GAP 12.4 MEQ/L (5-15); BILIRUBIN,TOTAL 0.8 mg/dL (0.2-1.3); Calcium 9.6 mg/dL (8.4-10.2); Creatinine 1 0.61 mg/dL (0.52-1.04); EST GLOMERULAR FILTRATION RATE 126.4 ML/MIN; Potassium 3.8 mmol/L (3.5-5.1); Total Protein 7.5 g/dL (6.3-8.2)
[2023-10-24] MEDS ORDERED: ROCEPHIN 1 GM / 100 ML NaCl 1 GM/100 ML IVPB IV ONE (12:26)
[2023-10-24] MEDS: ROCEPHIN 1 GM / 100 ML NaCl 1 GM/100 ML IVPB IV ONE (12:29)
[2023-10-24 13:03] VITALS: BP 126/90; PULSE 72; RESP 16; O2SAT 98
[2023-10-24 13:07] LABS: CHLAMYDIA DNA NOT DETECTED (NEGATIVE); GC DNA Probe NOT DETECTED (NEGATIVE)
== END 2023-10-24 13:09 | disposition home or self-care (01) ==
LOC: ED 11:18
DX: O20.9 Hemorrhage in early pregnancy, unspecified (principal); O23.41 Unspecified infection of urinary tract in pregnancy, first trimester; N39.0 Urinary tract infection, site not specified; O34.01 Maternal care for unspecified congenital malformation of uterus, first trimester; Q51.3 Bicornate uterus; Z3A.11 11 weeks gestation of pregnancy
CPT/HCPCS: 36000; 36415; 80053; 81001; 84702; 84703; 85025; 87086; 87491; 87591; 96365; 99283; J0696

== ENCOUNTER 2023-11-01 22:23 | Emergency (ER) | payer OTHER ==
[2023-11-01 22:51] LABS: HCG URINE TEST POSITIVE (NEGATIVE)
[2023-11-01 22:56] LABS: ADD URINE CULTURE? YES (NO); Appearance Cloudy (Clear); Bacteria None Seen /HPF (None Seen); Bilirubin Negative (Negative); Blood Large (Negative); Epithelial Cells Rare /HPF (None Seen); Glucose, Urine Negative (Negative); Hyaline Casts NONE SEEN /LPF (0-2); Ketones Negative (Negative); Leukocyte Esterase Trace (Negative); Nitrite Negative (Negative); Ph 6.5 (4.6-8.0); Protein,Urine Dip Negative (Negative); RBC >100 /HPF (0-5); Specific Gravity 1.015 (1.005-1.030)
[2023-11-01 23:14] VITALS: TEMP 98.2
--- NOTE | 2023-11-01 23:33 | ERPHSYRPT ---
- History of Present Illness Time Seen by Provider: 11/01/23 23:06 Source: patient Exam Limitations: no limitations Patient Subjective Stated Complaint: Pt states that she is 12 wks and 2 days and that around 11 am today she started bleeding, passed a couple large clots an has had some cramping Triage Nursing Assessment: pt walked to room, pt is alert/oriented. pt voided; small amount to bright red blood noted in toilet, and on toilet paper when pt wiped. Pt stated she has had the lashay pad on for about an hour; small anount of blood noted on pad. Physician History: Since about 12 hours ago pt has had vaginal bleeding going through 2 pads with some abdominal cramping 3-4/10 in severity. Pt states she is 12 weeks 2 days and is . Pt denies chest pain, vomiting, shortness of air, fever. Pt states she has an SIGN DESIGNER specialist Dr. Charles in [place], [place]. Pt states she has 2 days left of a prescription for amoxicillin for a UTI. Allergies/Adverse Reactions: No Known Drug Allergies Allergy (Verified 10/24/23 11:25) Home Medications: Ferrous Sulfate 325 mg [Feosol 325 mg] 325 mg PO DAILY 10/24/23 [History] Mv-Mn/Iron/FA/Herbal/Digestive [ One Tablet] 1 tab PO DAILY 10/24/23 [History] Hx Tetanus, Diphtheria Vaccination/Date Given: No Hx Influenza Vaccination/Date Given: No Hx Pneumococcal Vaccination/Date Given: No Travel Risk - International Travel Have you traveled outside of the country in past 3 weeks: No - Emerging Infectious Disease Are you exhibiting symptoms associated with any current EIDs: No - Review of Systems Constitutional: No Fever Respiratory: No Dyspnea Cardiac: No Chest Pain Abdominal/Gastrointestinal: Abdominal Pain, No Vomiting Genitourinary Symptoms: Vaginal Bleeding, No Dysuria Neurological: No Headache - Past Medical History Pertinent Past Medical History: Yes Neurological History: No Pertinent History ENT History: No Pertinent History Cardiac History: No Pertinent History Respiratory History: No Pertinent History Endocrine Medical History: No Pertinent History Musculoskeletal History: No Pertinent History GI Medical History: No Pertinent History History: No Pertinent History Psycho-Social History: No Pertinent History Female Reproductive Disorders: Other Other Medical History: Bicornuate uterus, double vagina/cervix. high risk of . Anemia. Ovarian cyst. PCOS - Past Surgical History Past Surgical History: Yes Neuro Surgical History: No Pertinent History Cardiac: No Pertinent History Respiratory: No Pertinent History Gastrointestinal: Cholecystectomy Genitourinary: No Pertinent History Musculoskeletal: No Pertinent History Female Surgical History: Section Significant Family History: no pertinent family hx - Female History Hx Now: Yes Gestational Age: 12 wks 2d - Social History Smoking Status: Never smoker How long have you smoked: 3 years Exposure to second hand smoke: Yes Drug Use: none Patient Lives Alone: No - Nursing Vital Signs Nursing Vital Signs: Initial Vital Signs Temperature 98.2 F 11/01/23 22:30 Pulse Rate 68 11/01/23 22:30 Respiratory Rate 20 11/01/23 22:30 Blood Pressure 144/86 11/01/23 22:30 O2 Sat by Pulse Oximetry 99 11/01/23 22:30 Pain Scale Pain Intensity 3 - Physical Exam General Appearance: alert Eye Exam: PERRL/EOMI Ears, Nose, Throat Exam: TMs normal, pharynx normal, moist mucous membranes Neck Exam: normal inspection Respiratory Exam: normal breath sounds, airway intact Cardiovascular Exam: normal heart sounds Gastrointestinal/Abdomen Exam: soft, normal bowel sounds, No tenderness Back Exam: normal inspection Extremity Exam: No pedal edema Neurologic Exam: alert, cooperative Skin Exam: warm, dry SpO2 Interpretation: normal SpO2: 99 O2 Delivery: Room Air - Course Nursing assessment & vital signs reviewed: Yes - Radiology Ultrasound Exam OB Ultrasound: Other (Tech report: placenta previa; Single IUP; ? subchorionic bleed; Small left ovarian cyst 2.0 x 2.0 x 1.7 cm.) Ordered Tests: Active Orders 24 hr Category Date Time Status OB <14 WKS 1ST GESTATION [US] Stat Exams 11/02/23 01:32 Taken AMYLASE Stat Lab 11/01/23 23:40 Completed CBC W DIFF Stat Lab 11/01/23 23:40 Completed CMP Stat Lab 11/01/23 23:40 Completed CULTURE,URINE Stat Lab 11/01/23 22:46 Received HCG QUALITATIVE, URINE Stat Lab 11/01/23 22:47 Completed HCG, Quantitative (Inhouse) Stat Lab 11/01/23 23:40 Completed LIPASE Stat Lab 11/01/23 23:40 Completed UA W/RFX UR CULTURE Stat Lab 11/01/23 22:46 Completed Lab/Rad Data: Laboratory Result Diagrams 11/01/23 23:40 11/01/23 23:40 Laboratory Results 11/01/23 11/01/23 11/01/23 Range/Units 23:40 23:40 23:40 WBC 8.3 (4.0-10.5) x10^3/uL RBC 4.11 (4.1-5.4) x10^6/uL Hgb 10.9 L (12.0-16.0) g/dL Hct 32.0 L (35-47) % MCV 77.9 L (78-100) fL MCH 26.5 (26-32) pg MCHC 34.1 (32-36) g/dL RDW 16.9 H (11.5-14.0) % Plt Count 176 (150-450) x10^3/uL MPV 9.6 (7.5-11.0) fL Gran % 70.0 H (36.0-66.0) % Immature Gran % (Auto) 0.4 (0.00-0.4) % Nucleat RBC Rel Count 0.0 (0.00-0.1) % Eos # (Auto) 0.13 (0-0.5) x10^3/uL Immature Gran # (Auto) 0.03 (0.00-0.03) x10^3u/L Absolute Lymphs (auto) 1.89 (1.0-4.6) x10^3/uL Absolute Monos (auto) 0.41 (0.0-1.3) x10^3/uL Absolute Nucleated RBC 0.00 (0.00-0.01) x10^3u/L Lymphocytes % 22.7 L (24.0-44.0) % Monocytes % 4.9 (0.0-12.0) % Eosinophils % 1.6 (0.00-5.0) % Basophils % 0.4 (0.0-0.4) % Absolute Granulocytes 5.82 (1.4-6.9) x10^3/uL Basophils # 0.03 (0-0.4) x10^3/uL Sodium 135 (135-145) mmol/L Potassium 3.5 (3.5-5.1) mmol/L Chloride 103 (98-107) mmol/L Carbon Dioxide 24 (22-30) mmol/L Anion Gap 11.0 (5-15) MEQ/L BUN 11 (7-17) mg/dL Creatinine 0.60 (0.52-1.04) mg/dL Estimated GFR 126.9 ML/MIN Glucose 89 (74-106) mg/dL Calcium 9.5 (8.4-10.2) mg/dL Total Bilirubin 0.40 (0.2-1.3) mg/dL AST 20 (14-36) U/L ALT 11 (0-35) U/L Alkaline Phosphatase 67 (38-126) U/L Serum Total Protein 6.9 (6.3-8.2) g/dL Albumin 4.0 (3.5-5.0) g/dL Amylase 92 (30-110) U/L Lipase 92 (23-300) U/L Beta HCG, Quant 45620 mIU/ml Urine Color (Yellow) Urine Appearance (Clear) Urine pH (4.6-8.0) Ur Specific [place] (1.005-1.030) Urine Protein (Negative) Urine Glucose (UA) (Negative) mg/dL Urine Ketones (Negative) Urine Blood (Negative) Urine Nitrite (Negative) Urine Bilirubin (Negative) Urine Urobilinogen (0.2) mg/dL Ur Leukocyte Esterase (Negative) U Hyaline Cast (Auto) (0-2) /LPF Urine Microscopic RBC (0-5) /HPF Urine Microscopic WBC (0-5) /HPF Ur Epithelial Cells (None Seen) /HPF Urine Bacteria (None Seen) /HPF Urine Culture Reflexed (NO) Urine HCG, Qual (NEGATIVE) ABO Group B Rh Factor POSITIVE Antibody Screen NEGATIVE (NEGATIVE) 11/01/23 11/01/23 Range/Units 22:47 22:46 WBC (4.0-10.5) x10^3/uL RBC (4.1-5.4) x10^6/uL Hgb (12.0-16.0) g/dL Hct (35-47) % MCV (78-100) fL MCH (26-32) pg MCHC (32-36) g/dL RDW (11.5-14.0) % Plt Count (150-450) x10^3/uL MPV (7.5-11.0) fL Gran % (36.0-66.0) % Immature Gran % (Auto) (0.00-0.4) % Nucleat RBC Rel Count (0.00-0.1) % Eos # (Auto) (0-0.5) x10^3/uL Immature Gran # (Auto) (0.00-0.03) x10^3u/L Absolute Lymphs (auto) (1.0-4.6) x10^3/uL Absolute Monos (auto) (0.0-1.3) x10^3/uL Absolute Nucleated RBC (0.00-0.01) x10^3u/L Lymphocytes % (24.0-44.0) % Monocytes % (0.0-12.0) % Eosinophils % (0.00-5.0) % Basophils % (0.0-0.4) % Absolute Granulocytes (1.4-6.9) x10^3/uL Basophils # (0-0.4) x10^3/uL Sodium (135-145) mmol/L Potassium (3.5-5.1) mmol/L Chloride (98-107) mmol/L Carbon Dioxide (22-30) mmol/L Anion Gap (5-15) MEQ/L BUN (7-17) mg/dL Creatinine (0.52-1.04) mg/dL Estimated GFR ML/MIN Glucose (74-106) mg/dL Calcium (8.4-10.2) mg/dL Total Bilirubin (0.2-1.3) mg/dL AST (14-36) U/L ALT (0-35) U/L Alkaline Phosphatase (38-126) U/L Serum Total Protein (6.3-8.2) g/dL Albumin (3.5-5.0) g/dL Amylase (30-110) U/L Lipase (23-300) U/L Beta HCG, Quant mIU/ml Urine Color Yellow (Yellow) Urine Appearance Cloudy A (Clear) Urine pH 6.5 (4.6-8.0) Ur Specific [place] 1.015 (1.005-1.030) Urine Protein Negative (Negative) Urine Glucose (UA) Negative (Negative) mg/dL Urine Ketones Negative (Negative) Urine Blood Large A (Negative) Urine Nitrite Negative (Negative) Urine Bilirubin Negative (Negative) Urine Urobilinogen 1.0 A (0.2) mg/dL Ur Leukocyte Esterase Trace A (Negative) U Hyaline Cast (Auto) NONE SEEN (0-2) /LPF Urine Microscopic RBC >100 A (0-5) /HPF Urine Microscopic WBC 6-10 A (0-5) /HPF Ur Epithelial Cells Rare (None Seen) /HPF Urine Bacteria None Seen (None Seen) /HPF Urine Culture Reflexed YES (NO) Urine HCG, Qual POSITIVE (NEGATIVE) ABO Group Rh Factor Antibody Screen (NEGATIVE) - Progress Progress: improved Discussed with : Other (Spoke with Dr. Montgomery([id number])(covering SIGN [employer] for Dr. Charles) who stated pt may go home with pelvic rest and call the office this morning for an appointment for this week.) Counseled pt/family regarding: lab results, diagnosis, need for follow-up Medical Desision Making - Diagnostic Testing Diagnostic test were ordered, analyzed, and reviewed by me: Yes - Departure Departure Disposition: Home Clinical Impression: Placenta previa, Vaginal bleeding during Condition: Stable Critical Care Time: No Referrals: OVI BAUGH MD [Primary Care Provider] - Follow up/PCP as directed Instructions: Placenta previa, Bleeding in Early (DC) Additional Instructions: Follow up with your SIGN DESIGNER doctor today; call the office for an appointment. Strict bed rest until you see your SIGN DESIGNER doctor. Forms: Work/School Release Form
[2023-11-01 23:57] LABS: Absolute Neutrophil Ct (ANC) 5.82 x10^3/uL (1.4-6.9); BASOPHIL % 0.4 % (0.0-0.4); Basophil (Absolute #) 0.03 x10^3/uL (0-0.4); Eosinophil % 1.6 % (0.00-5.0); Eosinophil (Absolute #) 0.13 x10^3/uL (0-0.5); Hemoglobin 10.9 g/dL (12.0-16.0); IMMATURE GRAN # 0.03 x10^3u/L (0.00-0.03); IMMATURE GRAN % 0.4 % (0.00-0.4); Lymphocyte (Absolute #) 1.89 x10^3/uL (1.0-4.6); Lymphocytes % 22.7 % (24.0-44.0); Mean Cell Volume 77.9 fL (78-100); Mean Corpuscular Hemoglobin 26.5 pg (26-32); Mean Corpuscular Hgb Concent. 34.1 g/dL (32-36); Mean Platelet Volume 9.6 fL (7.5-11.0); Monocyte (Absolute #) 0.41 x10^3/uL (0.0-1.3); Monocytes % 4.9 % (0.0-12.0); Platelet Count 176 x10^3/uL (150-450); Red Blood Count 4.11 x10^6/uL (4.1-5.4); Red Cell Distribution Width 16.9 % (11.5-14.0); White Blood Count 8.3 x10^3/uL (4.0-10.5)
[2023-11-02 00:25] LABS: BILIRUBIN,TOTAL 0.4 mg/dL (0.2-1.3); Calcium 9.5 mg/dL (8.4-10.2); Creatinine 1 0.6 mg/dL (0.52-1.04); EST GLOMERULAR FILTRATION RATE 126.9 ML/MIN; Potassium 3.5 mmol/L (3.5-5.1); Total Protein 6.9 g/dL (6.3-8.2)
[2023-11-02 00:32] LABS: ABO TYPING B; Antibody Screen NEGATIVE (NEGATIVE); RH TYPING POSITIVE
[2023-11-02 03:25] VITALS: O2SAT 99
[2023-11-02 03:32] VITALS: BP 102/68; PULSE 65; RESP 20
--- NOTE | 2023-11-02 08:47 | XRAY ---
Indication: Bleeding and pain. Two-dimensional transabdominal early OB ultrasound performed. Comparison: September 10, 2023 Again single intrauterine gestational sac with now a single pole. Mean crown-rump length is 6.77 cm corresponding to 13 weeks 0 days. heart rate 149 BPM. Tiny subchorionic hemorrhage up to 4 mm in thickness. Left ovary demonstrates 2 cm corpus luteal cyst. Nonvisualization right ovary. No suspicious adnexal mass or free fluid. Impression: Single viable intrauterine measuring 13 weeks 0 days. Expected date confinement is May 09, 2024. Tiny subchorionic hemorrhage. Comment: Preliminary report was given.
== END 2023-11-02 03:48 | disposition home or self-care (01) ==
LOC: ED 22:23
DX: O44.11 Complete placenta previa with hemorrhage, first trimester (principal); Z3A.12 12 weeks gestation of pregnancy; O20.9 Hemorrhage in early pregnancy, unspecified
CPT/HCPCS: 36415; 76801; 80053; 81001; 81025; 82150; 83690; 84702; 85025; 86850; 86900; 86901; 87086; 99283

== ENCOUNTER 2024-04-26 22:03 | Observation (INO) | payer OTHER ==
[2024-04-26 22:54] VITALS: TEMP 98.3
[2024-04-26] MEDS ORDERED: Lactated Ringers 1,000 ML IV ONE (23:33)
[2024-04-26] MEDS: Lactated Ringers 1,000 ML IV SCH (23:35)
[2024-04-27 00:48] LABS: Amphetamine,Urine NEGATIVE (NEGATIVE); Barbiturate,Urine NEGATIVE (NEGATIVE); Benzodiazepine,Urine NEGATIVE (NEGATIVE); Cocaine,Urine NEGATIVE (NEGATIVE); Methadone,Urine NEGATIVE (NEGATIVE); Opiate,Urine NEGATIVE (NEGATIVE); PCP,Urine NEGATIVE (NEGATIVE); THC,Urine NEGATIVE (NEGATIVE)
[2024-04-27 00:49] LABS: Appearance Clear (Clear); Bacteria Few /HPF (None Seen); Bilirubin Negative (Negative); Blood Negative (Negative); Epithelial Cells Moderate /HPF (None Seen); Glucose, Urine Negative (Negative); Hyaline Casts NONE SEEN /LPF (0-2); Ketones Negative (Negative); Leukocyte Esterase Trace (Negative); Nitrite Negative (Negative); Protein,Urine Dip Negative (Negative); RBC 0-2 /HPF (0-5); Specific Gravity 1.015 (1.005-1.030)
[2024-04-27] MEDS ORDERED: BRETHINE 1 MG/ML ONE (02:02)
[2024-04-27] MEDS: BRETHINE 1 MG/ML SQ ONE (02:03)
[2024-04-27 03:59] VITALS: BP 124/76; PULSE 122; RESP 20; O2SAT 97
== END 2024-04-27 05:30 | disposition home or self-care (01) ==
LOC: MED SURG 22:03 → UNDOADMOB 22:03 → UNDODISOB 04-27 05:30
PROVIDERS: ADMIT Family Medicine; ATTEND Family Medicine
DX: Z34.83 Encounter for supervision of other normal pregnancy, third trimester (principal); Z3A.37 37 weeks gestation of pregnancy
CPT/HCPCS: 80307; 81001; G0378; G0379

== ENCOUNTER 2024-04-30 10:41 | Inpatient (IN) | payer OTHER ==
[2024-04-30 11:47] LABS: Appearance Turbid (Clear); Bilirubin Negative (Negative); Blood Large (Negative); Glucose, Urine Negative (Negative); Ketones Negative (Negative); Leukocyte Esterase Small (Negative); Nitrite Negative (Negative); Ph 6.5 (4.6-8.0); Protein,Urine Dip 30 (Negative); Urobilinogen 0.2 mg/dL (0.2)
[2024-04-30 11:57] LABS: Bacteria Few /HPF (None Seen); Epithelial Cells Few /HPF (None Seen); RBC 51-100 /HPF (0-5)
[2024-04-30] MEDS: SOD CITRATE-CITRIC ACID SOLN PO SCH (12:48)
[2024-04-30] MEDS: Lactated Ringers 1,000 ML IV SCH (12:48)
[2024-04-30] MEDS: Reglan 10 MG/2 ML IV SCH (12:48)
[2024-04-30] MEDS: Pepcid 20 MG VIAL IV SCH (12:49)
[2024-04-30] MEDS: CEFAZOLIN 2 GM/100 ML NaCl 2 GM/100 ML IVPB IV SCH (12:49)
[2024-04-30 12:53] LABS: Hematocrit 34.8 % (34.1-44.9); Hemoglobin 12.5 g/dL (11.2-15.7); Mean Cell Volume 84.9 fL (79.4-94.8); Mean Corpuscular Hemoglobin 30.5 pg (25.6-32.2); Mean Corpuscular Hgb Concent. 35.9 g/dL (32.2-35.5); Mean Platelet Volume 9.8 fL (9.4-12.3); Platelet Count 156 x10^3/uL (182-369); Red Cell Distribution Width 11.8 % (11.7-14.4); White Blood Count 8.5 x10^3/uL (3.98-10.04)
[2024-04-30 13:09] LABS: INR 0.84 (0.8-3.0); PROTIME 9.3 SECONDS (9.4-12.5); PTT 27.3 SECONDS (25.1-36.5)
[2024-04-30 13:39] LABS: ABO TYPING B; Antibody Screen NEGATIVE (NEGATIVE); RH TYPING POSITIVE
[2024-04-30] MEDS ORDERED: Pitocin 10 UNITS/ML ONE (13:41)
[2024-04-30] MEDS ORDERED: Lactated Ringers 1,000 ML IV ONE (13:45)
[2024-04-30] MEDS ORDERED: Marcaine Mpf 0.5% Vial 30 Ml ONE (13:45)
[2024-04-30] MEDS ORDERED: OFIRMEV 100 ML IV ONE (13:45)
[2024-04-30] MEDS ORDERED: EXPAREL 133 MG/10 ML VIAL IJ ONE (13:45)
[2024-04-30] MEDS ORDERED: Astramorph-Pf 5 MG/10 ML ONE (13:54)
[2024-04-30] MEDS ORDERED: HOLD NARCOTIC ANALGESICS AND SEDATIVES X24 HR MC PRN (14:44)
[2024-04-30] MEDS ORDERED: BENADRYL 50 MG/ML IV PRN (14:44)
[2024-04-30] MEDS ORDERED: CORTISONE 1% CREAM TP PRN (14:44)
[2024-04-30] MEDS ORDERED: DEMEROL 50 MG IV PRN ×2 (14:44)
[2024-04-30] MEDS ORDERED: CLARITIN 10 MG PO PRN (14:44)
[2024-04-30] MEDS ORDERED: PHENYLEPHRINE HCL ONE (14:44)
[2024-04-30] MEDS ORDERED: PERCOCET TABLET 5/325MG PO PRN (14:44)
[2024-04-30] MEDS ORDERED: Dulcolax 10 MG SUPP PR PRN (14:44)
[2024-04-30] MEDS ORDERED: Anucort-HC SUPPOSITORY PR PRN (14:44)
[2024-04-30] MEDS ORDERED: Narcan 0.4 MG/ML IV PRN (14:44)
[2024-04-30] MEDS ORDERED: Nubain 10 MG/ML IV PRN (14:44)
[2024-04-30 14:57] LABS: Amphetamine,Urine NEGATIVE (NEGATIVE); Barbiturate,Urine NEGATIVE (NEGATIVE); Benzodiazepine,Urine NEGATIVE (NEGATIVE); Cocaine,Urine NEGATIVE (NEGATIVE); Methadone,Urine NEGATIVE (NEGATIVE); Opiate,Urine NEGATIVE (NEGATIVE); PCP,Urine NEGATIVE (NEGATIVE); THC,Urine NEGATIVE (NEGATIVE)
[2024-04-30 16:06] LABS: Appearance Clear (Clear); Bacteria None Seen /HPF (None Seen); Bilirubin Negative (Negative); Blood Negative (Negative); Epithelial Cells None Seen /HPF (None Seen); Glucose, Urine Negative (Negative); Hyaline Casts NONE SEEN /LPF (0-2); Ketones 15 (Negative); Leukocyte Esterase Negative (Negative); Nitrite Negative (Negative); Ph 7.5 (4.6-8.0); Protein,Urine Dip Negative (Negative); RBC 0-2 /HPF (0-5); Specific Gravity 1.015 (1.005-1.030); Urobilinogen 0.2 mg/dL (0.2); WBC 0-2 /HPF (0-5)
[2024-04-30] MEDS: Zofran 4 MG/2 ML VIAL IV PRN (16:33)
[2024-04-30] MEDS: Dextrose 5%-Lr IV Solution 1000 ML 1,000 ML IV SCH (16:37)
[2024-04-30] MEDS: Compazine 10 MG/2 ML IV ONE (17:59)
[2024-04-30] MEDS: Reglan 10 MG/2 ML IV ONE (20:42)
[2024-04-30] MEDS: Docusate Sodium 100 MG PO SCH (20:42)
[2024-05-01 07:03] LABS: Absolute Neutrophil Ct (ANC) 8.58 x10^3/uL (1.56-6.13); BASOPHIL % 0.3 % (0.1-1.2); Basophil (Absolute #) 0.03 x10^3/uL (0.01-0.08); Eosinophil % 0.9 % (0.7-5.8); Hematocrit 29.1 % (34.1-44.9); Hemoglobin 10.2 g/dL (11.2-15.7); IMMATURE GRAN # 0.06 x10^3u/L (0.001-0.031); IMMATURE GRAN % 0.5 % (0.001-0.429); Lymphocyte (Absolute #) 1.76 x10^3/uL (1.18-3.74); Lymphocytes % 15.9 % (19.3-51.7); Mean Cell Volume 85.8 fL (79.4-94.8); Mean Corpuscular Hemoglobin 30.1 pg (25.6-32.2); Mean Corpuscular Hgb Concent. 35.1 g/dL (32.2-35.5); Mean Platelet Volume 9.9 fL (9.4-12.3); Monocyte (Absolute #) 0.54 x10^3/uL (0.24-0.86); Monocytes % 4.9 % (4.7-12.5); Neutrophil % 77.5 % (34.0-71.1); Platelet Count 147 x10^3/uL (182-369); Red Blood Count 3.39 x10^6/uL (3.93-5.22); Red Cell Distribution Width 11.9 % (11.7-14.4); White Blood Count 11.1 x10^3/uL (3.98-10.04)
[2024-05-01] MEDS: FERREX 150 PO SCH (09:08)
[2024-05-01] MEDS: NORCO 5/325 MG PO PRN (14:46)
[2024-05-01] MEDS: Mylicon 80MG PO PRN (18:57)
[2024-05-01] MEDS: Adacel Vial IM ONE (19:23)
[2024-05-01] MEDS: LANSINOH 40 GM TOP PRN (19:37)
[2024-05-01] MEDS: MOTRIN 400 MG PO PRN (19:37)
[2024-05-01] MEDS: Dextrose 5%-Lr IV Solution 1000 ML 1,000 ML IV SCH (20:34)
[2024-05-01] MEDS: TYLENOL EXTRA STRENGTH 500 MG PO PRN (23:08)
[2024-05-02] MEDS: Dermoplast Spray TP PRN (08:52)
--- NOTE | 2024-05-02 09:01 | PCM.DS ---
Discharge Summary Date of Admission: 04/30/24 12:30 Admitting Physician: OVI BAUGH Consults: Consults on Case 04/30/24 14:45 Notify Anesthesia Provider PRN 04/30/24 18:36 Navigation ONCE Primary Care Provider: OVI BAUGH Allergies Allergies No Known Drug Allergies Allergy (Verified 10/24/23 11:25) Hospital Summary - Hospital Course Hospital Course: patient arrived in spont labor at term with hx prior . underwent repeat with no complications. mild lochia and pain controlled postop. voiding with no difficulty and . - Vitals & Intake/Output Vital Signs: Vital Signs Temperature 97.8 F 05/02/24 03:00 Pulse Rate 81 05/02/24 03:00 Respiratory Rate 16 05/02/24 03:00 Blood Pressure 111/68 05/02/24 03:00 O2 Sat by Pulse Oximetry 99 05/01/24 20:20 Intake & Output: Intake & Output 04/29/24 04/30/24 05/01/24 05/02/24 11:59 11:59 11:59 11:59 Intake Total 1967 Output Total 1950 Balance 17 Weight 77.111 kg 77.111 kg - Lab Result Diagrams: 05/01/24 05:40 Micro Results-Entire Visit: Microbiology 04/30/24 15:54 Urine Culture - Final Catherized NO GROWTH 04/30/24 11:13 Urine Culture - Final Urine, Void <10K NORMAL SKIN CARA PROBABLE SKIN CONTAMINANT - Procedures and Test Procedures and Tests throughout Hospitalization: Therapy Orders & Screens 04/30/24 14:42 Standby ROUTINE Comment: Diagnosis: IUP Discharge Exam General Appearance: no apparent distress Neurologic Exam: alert Respiratory Exam: normal breath sounds, lungs clear, No respiratory distress Cardiovascular Exam: regular rate/rhythm, normal heart sounds Gastrointestinal/Abdomen Exam: soft, other (incision clean, dry, intact) Extremity Exam: normal inspection, normal range of motion Skin Exam: normal color, warm, dry Final Diagnosis/Problem List - Final Discharge Diagnosis/Problem (1) delivery delivered Current Visit: No Status: Acute Code(s): O82 - ENCOUNTER FOR DELIVERY WITHOUT INDICATION (2) () Current Visit: No Status: Acute Code(s): Z78.9 - OTHER SPECIFIED HEALTH STATUS - Discharge Disposition: Home, Self-Care Condition: Stable Prescriptions: New Hydrocodone/Acetaminophen [Hydrocodone-Acetamin 5-325 mg] 1 tab PO Q6HPRN PRN #28 tablet MDD 4 PRN Reason: Pain Continue Mv-Mn/Iron/FA/Herbal/Digestive [ One Tablet] 1 tab PO DAILY Discontinued Ferrous Sulfate 325 mg [Feosol 325 mg] 650 mg PO DAILY Additional Instructions: PLEASE RETURN TO THE HOSPITAL ON THURSDAY, April FOR A FOLLOW UP ON BOTH MOM AND BABY. FOLLOW UP APPOINTMENT WITH DR BAUGH SCHEDULED FOR PLEASE DO NOT HESITATE TO CALL THE HOSPITAL OR DR BAUGH WITH ANY QUESTIONS OR CONCERNS. Follow up with: OVI BAUGH MD [Primary Care Provider] - 1 Week Forms: OB Discharge Instructions
--- NOTE | 2024-05-02 09:30 | OP ---
SURGERY DATE/TIME: 04/30/2024 [id number] PREOPERATIVE DIAGNOSES: 1) Term intrauterine , in active labor. 2) History of prior section. 3) Bicornuate uterus. POSTOPERATIVE DIAGNOSES: 1) Term intrauterine , in active labor. 2) History of prior section. 3) Bicornuate uterus. PROCEDURE: Repeat low transverse section. SURGEON: Moris Bejarano MD ANESTHESIA: Spinal by Behzad Gil CRNA QUANTITATIVE BLOOD LOSS: 369 mL. INTRAVENOUS: 1100 mL of crystalloid. URINE: 250 mL of clear straw-colored urine. DESCRIPTION OF PROCEDURE AND FINDINGS: After informed written consent was obtained, the patient was taken to the operating room. She was prepped and draped in the usual sterile fashion after she underwent a spinal anesthesia. After adequate level of anesthesia was assessed, a low transverse skin incision was made by a knife to area of prior scar down through the subcutaneous fat to the level of the fascia. Fascia was nicked on both sides of the midline, extended into horizontal using curved Lorenzana scissors. The peritoneal cavity was opened in the blunt fashion and extended in the horizontal manually. Bladder flap was created and reflected over the lower uterine segment. Klein was noted to be high in the lower uterine segment but care was taken to create the flap and reflect it inferiorly and confirmed with Anesthesia there was clear urine in the Klein at that point. A uterine incision was then made by a knife and carried down to the level of the amniotic membranes which were carefully artificially ruptured and were clear. A viable male was delivered from a vertex presentation with a strong cry immediately after delivery. Oropharynx and nares were bulb suctioned free. Nuchal cord was reduced. He was delivered on the operative field and cord was clamped and cut and he was handed off to the awaiting nursery team. Placenta was then manually extracted. Uterus was exteriorized. The uterine cavity was sponge curetted, cleaned with a lap sponge, and uterine septum was able to be felt. Both sides of the septum were swept free of any membranes and bleeding appeared to be controlled at that time. Uterine incision was closed with #1 chromic in a running locked fashion with good closure and good hemostasis. There was an area on the lower uterine segment with some mild oozing, so 2 [id number] sutures were placed in that area. It appeared to be dry. Under that bladder flap, there was a minimal amount of oozing but again it appeared to be dry at that point. A small piece of Surgicel was placed in that bed and then bladder was reflected back over it. Posterior cul-de-sac prior to the placement of the Optifoam was suctioned free and cleaned with a moist lap sponge. Lateral gutters were inspected and cleaned with a moist lap sponge as well. The uterine incision was hemostatic with good closure. No other complications were seen. Again, verified with Anesthesia that the Klein was clear once again. Finally, the fascia was then closed with 0 Vicryl in a running fashion. Good closure and good hemostasis were achieved at that level. Subcutaneous fat was irrigated with warm sterile saline. Any areas of bleeding were cauterized with electrocautery. Finally, the skin layer was closed with 4-0 undyed Vicryl in a running subcuticular fashion. Steri-Strips and an occlusive dressing were placed over the incision. The patient was transferred to the recovery room in excellent condition.
[2024-05-02 09:47] VITALS: BP 116/66; PULSE 100; RESP 14; TEMP 98.3; O2SAT 98
[2024-05-03 07:24] LABS: RPR Non Reactive (Non Reactive)
== END 2024-05-02 11:45 | disposition home or self-care (01) | DRG 788 ==
LOC: UNDOADMOB 10:41 → OB 10:41 → MED SURG 10:41 → OBSVTOIN 12:30 → OB 12:30
PROVIDERS: ADMIT Family Medicine; ATTEND Family Medicine
PROC: 10D00Z1 Extraction of Products of Conception, Low, Open Approach (ICD-10-PCS; principal; 2024-04-30)
DX: O65.5 Obstructed labor due to abnormality of maternal pelvic organs (principal); O34.219 Maternal care for unspecified type scar from previous cesarean delivery; Z37.0 Single live birth; Z3A.38 38 weeks gestation of pregnancy
CPT/HCPCS: 36415; 64488; 76937; 80307; 81001; 85025; 85027; 85610; 85730; 86592; 86850; 86900; 86901; 87086; 94799; J0690; J2274; J2371; J2405; J2590; L0625; A9270-GY